=== PATIENT | female | born 1945 | race Caucasian/White ===

== ENCOUNTER 2017-02-16 01:46 | Inpatient (IN) | payer OTHER ==
[2017-02-16] MEDS ORDERED: ACETAMINOPHEN 500 MG TABLET (FP) PO ONE (02:15)
[2017-02-16] MEDS ORDERED: ACETAMINOPHEN 325 MG TABLET (FP) ONE (02:26)
--- NOTE | 2017-02-16 02:50 | PDOC ---
History of Present Illness - General Chief Complaint: Pain, Acute Stated Complaint: FALL,SHOULDER INJURY Time Seen by Provider: 02/16/17 02:08 History Source: Patient Exam Limitations: No Limitations - History of Present Illness Initial Comments: 02/16/17 03:18 Patient is a 71 y.o. female with a PMH of HIV and Seizure disorder who presents to our facility today after a mechanical fall. Patient states she slipped on some urine on the bathroom floor of her assisted living facility falling on her left side hitting her left arm and left shoulder. Patient denies any head trauma, loss of consciousness or associated seizure like activity. Patient c/ o of a dull pain in her RUE. Past History - Past Medical History Allergies/Adverse Reactions: Allergies Allergy/AdvReac Type Severity Reaction Status Date / Time No Known Allergies Allergy Verified 05/16/16 08:39 Home Medications: Ambulatory Orders Cyanocobalamin (Vitamin B-12) [B-12] 1,000 mcg PO DAILY 05/16/16 Dolutegravir Sodium [Tivicay] 50 mg PO DAILY 05/16/16 Fluoxetine HCl [Sarafem] 20 mg PO DAILY 05/16/16 Maraviroc [Selzentry] 300 mg PO BID 05/16/16 Metoprolol Tartrate [Lopressor -] 50 mg PO TID 05/16/16 Omeprazole Magnesium [Prilosec] 20 mg PO DAILY 05/16/16 Perphenazine [Trilafon] 4 mg PO DAILY 05/16/16 Phenobarbital 32.4 mg PO TID 05/16/16 Phenytoin Sodium 100 cap MC TID 05/16/16 Tenofovir Disoproxil Fumarate [Viread] 300 mg PO DAILY 05/16/16 CVA: Yes HTN: Yes Hypercholesterolemia: Yes HIV: Yes Psychiatric Problems: Yes (depression) Seizures: Yes (epilsepy) - Psycho/Social/Smoking Cessation Hx Suicidal Ideation: No Smoking History: Unknown if ever smoked Have you smoked in the past 12 months: No Hx Alcohol Use: No Drug/Substance Use Hx: No Substance Use Type: None Review of Systems - Review of Systems Constitutional: No: Symptoms Reported, Chills, Diaphoresis, Night Sweats HEENTM: No: Blurred Vision, Double Vision, Tinnitus, Throat Swelling Respiratory: No: Cough, Shortness of Breath Cardiac (ROS): No: Chest Pain, Lightheadedness, Palpitations, Syncope ABD/GI: No: Constipated, Diarrhea, Nausea, Vomiting : No: Burning, Dysuria Integumentary: No: Bruising, Dryness, Erythema, Flushing Neurological: No: Headache, Numbness, Seizure, Tingling, Tremors All Other Systems: Reviewed and Negative *Physical Exam - Vital Signs Last Vital Signs Temp Pulse Resp BP Pulse Ox 98.2 F 74 18 157/74 98 02/16/17 01:55 02/16/17 01:55 02/16/17 01:55 02/16/17 01:55 02/16/17 02:00 - Physical Exam General Appearance: Yes: Nourished, Appropriately Dressed HEENT: positive: EOMI, JODI Neck: positive: Trachea midline, Supple Respiratory/Chest: positive: Lungs Clear, Normal Breath Sounds Cardiovascular: positive: Regular Rhythm, Regular Rate, S1, S2 Gastrointestinal/Abdominal: positive: Normal Bowel Sounds, Soft Extremity: positive: Other (Limited ROM of RUE; no TTP) Integumentary: positive: Normal Color, Dry, Warm Neurologic: positive: Fully Oriented, Alert ED Treatment Course - LABORATORY CBC & Chemistry Diagram: 02/16/17 03:58 02/16/17 03:58 - RADIOLOGY Radiology Studies Ordered: Category Date Time Status HIP & PELVIS-LEFT [RAD] Stat Radiology 02/16/17 02:10 Taken HIP-RIGHT [RAD] Stat Radiology 02/16/17 02:15 Taken HUMERUS-LEFT [RAD] Stat Radiology 02/16/17 02:09 Taken SHOULDER-LEFT [RAD] Stat Radiology 02/16/17 02:09 Taken - Medications Given in the ED: ED Medications Discontinued Medications Generic Name Dose Route Start Last Admin Trade Name Freq PRN Reason Stop Dose Admin Acetaminophen 1,000 mg 02/16/17 02:15 02/16/17 02:21 Tylenol - PO 02/16/17 02:16 1,000 mg ONCE ONE Administration Medical Decision Making - Medical Decision Making 02/16/17 04:37 Patient is a 71 y.o. female who presents to our facility following a mechanical fall in which she injured her LUE. Wet read of the L shoulder X-ray showed posterior displacement of the humeral head as well as the L humeral fracture. Patient was admitted to medicine service with orthopedic consult pending. *DC/Admit/Observation/Transfer Diagnosis at time of Disposition: Humeral shaft fracture Qualifiers: Encounter type: initial encounter Fracture type: closed Fracture morphology: comminuted Fracture alignment: displaced Laterality: left Qualified Code(s): S42.352A - Displaced comminuted fracture of shaft of humerus, left arm, initial encounter for closed fracture - Discharge Dispostion Admit: Yes - Referrals - Attestations Physician Attestion: 02/16/17 05:25 I, Dr. Marisabel Glover, attest that this document has been prepared under my direction and personally reviewed by me in its entirety. I further attest, that it accurately reflects all work, treatment, procedures and medical decision -making performed by me.
--- NOTE | 2017-02-16 02:53 | PDOC ---
Attending Attestation - Resident Resident Name: Marisabel Glover - ED Attending Attestation I have performed the following: I have examined & evaluated the patient, The case was reviewed & discussed with the resident, I agree w/resident's findings & plan, Exceptions are as noted - HPI HPI: 02/16/17 02:51 S/p fall at NH c/o pain to left shoulder/ humeral region - Physicial Exam PE: 02/16/17 02:49 *Physical Exam General Appearance: Yes: Appropriately Dressed. No: Apparent Distress, Intoxicated HEENT: positive: EOMI, JODI, Normal ENT Inspection, Normal Voice, TMs Normal, Pharynx Normal. negative: Pale Conjunctivae, Photophobia, Scleral Icterus (R), Scleral Icterus (L) Neck: positive: Trachea midline, Normal Thyroid, Supple. negative: Tender, Rigid, Carotid bruit, Stridor, Lymphadenopathy (R), Lymphadenopathy (L), Thyromegaly Respiratory/Chest: positive: Lungs Clear, Normal Breath Sounds. negative: Chest Tender, Respiratory Distress, Accessory Muscle Use, Labored Respiration, RES, Crackles, Rales, Rhonchi, Stridor, Wheezing, Dullness Cardiovascular: positive: Regular Rhythm, Regular Rate, S1, S2. negative: Edema , JVD, Murmur, Bradycardia, Tachycardia Vascular Pulses: Dorsalis-Pedis (R): 2+, Doralis-Pedis (L): 2+ Gastrointestinal/Abdominal: positive: Normal Bowel Sounds, Flat, Soft. negative : Tender, Organomegaly, Pulsatile Mass, Increased Bowel Sounds, Decreased BS, Distended, Guarding, Rebound, Hernia, Hepatomegaly, Spleenomegaly Lymphatic: negative: Adenopathy, Tenderness Musculoskeletal: positive: Normal Inspection. negative: CVA Tenderness, Decreased Range of Motion Extremity: positive: Normal Capillary Refill, deformity to left shoulder/ humeral region, + left shoulder tenderness, Pelvis Stable. negative: Pedal Edema, Swelling, Erythema Integumentary: positive: Normal Color, Dry, Warm. negative: Cyanotic, Erythema , Jaundice, Rash Neurologic: positive: book packer II-XII NML intact, Fully Oriented, Alert, Normal Mood/ Affect, Motor Strength 5/5. negative: EOM Palsy, Facial Droop, Sensory Deficit - Medical Decision Making 02/16/17 02:52 admission to medicine <Milton Perez - Last Filed: 02/16/17 02:49> Discharge Disposition - Discharge Dispostion Admit: Yes <Milton Perez - Last Filed: 02/16/17 02:49> <Roberto Mauro - Last Filed: 02/16/17 03:55> - Diagnosis Humeral shaft fracture Qualifiers: Encounter type: initial encounter Fracture type: closed Fracture morphology: comminuted Fracture alignment: displaced Laterality: left Qualified Code(s): S42.352A - Displaced comminuted fracture of shaft of humerus, left arm, initial encounter for closed fracture - Referrals Referrals: Yasmine Coffey MD [Primary Care Provider] - Heart Score/ECG Review #1 02/16/17 03:54 Vent. rate [address] interval 142 ms QRS duration 94 ms Normal sinus rhythm Incomplete right bundle branch block T wave abnormality, consider anterior ischemia <Roberto Mauro - Last Filed: 02/16/17 03:55>
[2017-02-16] MEDS: morphine CARPU-JECT 4 MG/1 ML DISP.SYRIN IVPUSH ONE ×2 (04:00→04:11)
[2017-02-16] MEDS: ONDANSETRON 4 MG/2 ML VIAL IVPB ONE ×2 (04:01→04:11)
[2017-02-16] MEDS ORDERED: morphine CARPU-JECT 4 MG/1 ML DISP.SYRIN ONE ×2 (04:04→22:25)
[2017-02-16 04:06] LABS: MCH 31.8 pg (25.7-33.7); MEAN CELL VOLUME 96.2 fl (80-96); RDW 13.2 % (11.6-15.6); WHITE BLOOD COUNT 4.6 K/mm3 (4.0-10.0)
[2017-02-16 04:30] LABS: ANION GAP 8 (8-16); CALCIUM 8.9 mg/dL (8.5-10.1); CO2 28 mmol/L (21-32); CREATININE 0.6 mg/dL (0.55-1.02); GLUCOSE,RANDOM 130 mg/dL (74-106)
[2017-02-16 04:35] LABS: TROPONIN I < 0.02 ng/ml (0.00-0.05)
[2017-02-16 04:52] VITALS: BMI 32.7
[2017-02-16 05:07] LABS: PLATELET COMMENT2 UNABLE TO ENUMERATE; PLATELET ESTIMATE ADEQUATE (NORMAL)
[2017-02-16] MEDS ORDERED: SODIUM CHLORIDE 1,000 ML IV SCH ×2 (05:15→15:49)
[2017-02-16] MEDS ORDERED: morphine CARPU-JECT 2 MG/1 ML DISP.SYRIN IVPUSH PRN ×2 (05:26→15:49)
[2017-02-16] MEDS: PHENobarbital 30 MG TABLET PO SCH ×3 (06:11→21:29)
[2017-02-16] MEDS: PHENYTOIN NA EXTENDED 100 MG CAPSULE (FP) PO SCH ×3 (06:11→21:29)
[2017-02-16] MEDS: METOPROLOL TARTRATE 50 MG TABLET (FP) PO SCH ×3 (06:11→21:29)
--- NOTE | 2017-02-16 06:53 | HP ---
CHIEF COMPLAINT: PCP: HISTORY OF PRESENT ILLNESS: Patient is a 71 y.o. female with a PMH of HIV and Seizure disorder, HTN, who presents to our facility today after a mechanical fall. Patient states she slipped in bathroom floor of her assisted living facility falling on her left side hitting her left arm and left shoulder. Patient denies any head trauma, loss of consciousness or associated seizure like activity. Patient c/o of a dull pain in her RUE. She denies any fever , chills, Light headedness, blurry vision, chest pain, Abdominal pain , D/C/N/V. She reports h/o of urinary incontinence. ER course was notable for: (1)EKG : NSR (2)IV fluids NS 1000 Bolus (3)Pain control 4)Left arm x ray : Displaced closed left humerus fracture Recent Travel:NO PAST MEDICAL HISTORY:HIV, Seizures. PAST SURGICAL HISTORY: multiple humeral fractures Social History: Smoking:None Alcohol:Socially Drugs: None Family History:not significant Allergies No Known Allergies Allergy (Verified 05/16/16 08:39) HOME MEDICATIONS: Home Medications Medication Instructions Recorded Cyanocobalamin (Vitamin B-12) 1,000 mcg PO DAILY 05/16/16 [B-12] Dolutegravir Sodium [Tivicay] 50 mg PO DAILY 05/16/16 Fluoxetine HCl [Sarafem] 20 mg PO DAILY 05/16/16 Maraviroc [Selzentry] 300 mg PO BID 05/16/16 Metoprolol Tartrate [Lopressor -] 50 mg PO TID 05/16/16 Omeprazole Magnesium [Prilosec] 20 mg PO DAILY 05/16/16 Perphenazine [Trilafon] 4 mg PO DAILY 05/16/16 Phenobarbital 32.4 mg PO TID 05/16/16 Phenytoin Sodium 100 cap MC TID 05/16/16 Tenofovir Disoproxil Fumarate 300 mg PO DAILY 05/16/16 [Viread] Current Medications Generic Name Dose Route Start Last Admin Trade Name Freq PRN Reason Stop Dose Admin Fluoxetine HCl 20 mg 02/16/17 10:00 Prozac - PO DAILY BRODIE Sodium Chloride 1,000 mls @ 75 mls/hr 02/16/17 05:15 02/16/17 06:11 Normal Saline - IV 02/17/17 18:34 75 mls/hr ASDIR BRODIE Administration Maraviroc 300 mg 02/16/17 10:00 Selzentry - PO BID [facility] Metoprolol Tartrate 50 mg 02/16/17 06:00 02/16/17 06:11 Lopressor - PO 50 mg TID [facility] Administration Morphine Sulfate 2 mg 02/16/17 05:26 Morphine Injection - IVPUSH Q4H PRN PAIN Pantoprazole Sodium 20 mg 02/16/17 10:00 Protonix - PO DAILY [facility] Perphenazine 4 mg 02/16/17 10:00 Trilafon PO DAILY [facility] Phenobarbital 30 mg 02/16/17 06:00 02/16/17 06:11 Phenobarbital - PO 30 mg TID [facility] Administration Phenytoin Sodium 100 mg 02/16/17 06:00 02/16/17 06:11 Dilantin - PO 100 mg TID [facility] Administration Tenofovir Disoproxil Fumarate 300 mg 02/16/17 12:00 Viread - PO DAILY@1200 BRODIE Current Medications Fluoxetine HCl (Prozac -) 20 mg PO DAILY [facility] Sodium Chloride (Normal Saline -) 1,000 mls @ 75 mls/hr IV ASDIR [facility] Stop: 02/17/17 18:34 Last Admin: 02/16/17 06:11 Dose: 75 mls/hr Maraviroc (Selzentry -) 300 mg PO BID [facility] Metoprolol Tartrate (Lopressor -) 50 mg PO TID [facility] Last Admin: 02/16/17 06:11 Dose: 50 mg Morphine Sulfate (Morphine Injection -) 2 mg IVPUSH Q4H PRN PRN Reason: PAIN Pantoprazole Sodium (Protonix -) 20 mg PO DAILY [facility] Perphenazine (Trilafon) 4 mg PO DAILY [facility] Phenobarbital (Phenobarbital -) 30 mg PO TID [facility] Last Admin: 02/16/17 06:11 Dose: 30 mg Phenytoin Sodium (Dilantin -) 100 mg PO TID [facility] Last Admin: 02/16/17 06:11 Dose: 100 mg Tenofovir Disoproxil Fumarate (Viread -) 300 mg PO DAILY@1200 BRODIE REVIEW OF SYSTEMS CONSTITUTIONAL: Absent: fever, chills, diaphoresis, generalized weakness, malaise, loss of appetite, weight change HEENT: Absent: rhinorrhea, nasal congestion, throat pain, throat swelling, difficulty swallowing, mouth swelling, ear pain, eye pain, visual changes CARDIOVASCULAR: Absent: chest pain, syncope, palpitations, irregular heart rate, lightheadedness , peripheral edema RESPIRATORY: Absent: cough, shortness of breath, dyspnea with exertion, orthopnea, wheezing, stridor, hemoptysis GASTROINTESTINAL: Absent: abdominal pain, abdominal distension, nausea, vomiting, diarrhea, constipation, melena, hematochezia GENITOURINARY: Absent: dysuria, frequency, urgency, hesitancy, hematuria, flank pain, genital pain MUSCULOSKELETAL: Absent: myalgia, arthralgia, joint swelling left ashoulder , back pain, neck pain, Unable to move her left arm. SKIN: Absent: rash, itching, pallor, ecchymosis on the left upper arm. HEMATOLOGIC/IMMUNOLOGIC: Absent: easy bleeding, easy bruising, lymphadenopathy, frequent infections ENDOCRINE: Absent: weight gain during last 2 years, unexplained weight loss, heat intolerance, cold intolerance NEUROLOGIC: Absent: headache, focal weakness or paresthesias, dizziness, unsteady gait, seizure, mental status changes, bladder or bowel incontinence PSYCHIATRIC: Absent: anxiety, depression, suicidal or homicidal ideation, hallucinations. PHYSICAL EXAMINATION Vital Signs - 24 hr 02/16/17 02/16/17 02/16/17 04:47 04:55 05:15 Temperature 98.1 F Pulse Rate 104 H 66 Respiratory 20 Rate Blood Pressure 111/70 156/98 O2 Sat by Pulse 96 Oximetry (%) 02/16/17 06:33 Temperature Pulse Rate Respiratory 20 Rate Blood Pressure O2 Sat by Pulse 96 Oximetry (%) GENERAL: Awake, alert, and fully oriented, in no acute distress. HEAD: Normal with no signs of trauma. EYES: Pupils equal, round and reactive to light, extraocular movements intact, sclera anicteric, conjunctiva clear. No lid lag. NECK: Normal range of motion, supple without lymphadenopathy, JVD, or masses. LUNGS: Breath sounds equal, clear to auscultation bilaterally. No wheezes, and no crackles. No accessory muscle use. HEART: Regular rate and rhythm, normal S1 and S2 without murmur, rub or gallop. ABDOMEN: Soft, nontender, not distended, normoactive bowel sounds, no guarding, no rebound, no masses. No hepatomegaly or splenomegaly. MUSCULOSKELETAL: Normal range of motion at all joints except left arm. No CVA tenderness. UPPER EXTREMITIES: 2+ pulses, warm, well-perfused. No cyanosis. No clubbing. No peripheral edema. LOWER EXTREMITIES: 2+ pulses, warm, well-perfused. No calf tenderness. No peripheral edema. NEUROLOGICAL: Normal speech. PSYCHIATRIC: Cooperative. Good eye contact. Appropriate mood and affect. SKIN: Warm, dry, normal turgor, no rashes or lesions noted, normal capillary refill. Laboratory Results - last 24 hr 02/16/17 02/16/17 02/16/17 03:58 03:58 03:58 WBC 4.6 RBC 3.92 Hgb 12.5 Hct 37.8 MCV 96.2 H MCH 31.8 MCHC 33.0 RDW 13.2 Plt Count No Result Required. Platelet Estimate Adequate Platelet Comment Unable to enumerate INR Sodium 135 L Potassium 4.8 Chloride 99 Carbon Dioxide 28 Anion Gap 8 BUN 11 D Creatinine 0.6 Random Glucose 130 H Calcium 8.9 Creatine Kinase 80 Troponin I < 0.02 02/16/17 04:15 WBC RBC Hgb Hct MCV MCH MCHC RDW Plt Count Platelet Estimate Platelet Comment INR Cancelled Sodium Potassium Chloride Carbon Dioxide Anion Gap BUN Creatinine Random Glucose Calcium Creatine Kinase Troponin I ASSESSMENT/PLAN: Patient is a 71 y.o. female with a PMH of HIV and Seizure disorder who presents to our facility today S/P mechanical fall. In the Ed she was found to have displaced humerus fracture,and wad admitted to med-surg for evaluation and management. # S/P displaced closed fracture * IV fluids NS @ 75 CC/HR, 2 bags * Pain control , Morphine 2 mg IVpush Q 4 HR PRN * Ortho consult * NPO, possible procedure * Fall precautions * PT,INR , APTT, type and screen * * * # HIV , Chronic * Unknown Cd4, Viral load * Continue home meds Selzentry 300 mg PO BID BRODIE, Viread 300 mg PO DAILY@ 1200 BRODIE * F/U clinically * * # Seizure, chronic * continue home meds Dilantin 100 mg TID, Phenobarbital 30 mg PO TID, Phenytoin 4 mg PO daily. * * # HTN , Controlled * Continue home Med Lopressor 50 mg PO TID * * F/E/N * F: IV fluids NS @ 75CC /Hr , 2 bags * Electrolytes WNL * NPO * #Proph * DVT, High risk , 5000 Heparin SQ TID * GI Proph : Protonix 20 mg PO daily * * #Dispo * Admit for med surg * Full code * * Patient wad discussed with and the medical team Curt Garcia MD PGY 1 Note : day team please follow up about psych history, and verify her meds.
--- NOTE | 2017-02-16 07:23 | PN ---
Teaching Attending Note Name of Resident: Curt Gamboa ATTENDING PHYSICIAN STATEMENT I saw and evaluated the patient. I reviewed the resident's note and discussed the case with the resident. I agree with the resident's findings and plan as documented. SUBJECTIVE: 71 y/o female presented to ED after fall in bathroom with injury to left arm. Patient history significant for seizures and multiple fractures. OBJECTIVE: A&Ox3 in mild distress, left arm with ecchymosis on medial aspect, peripheral pulses appreciated, humerus deformed, limited ROM. CBCD WBC 4.6 K/mm3 (4.0-10.0) 02/16/17 03:58 RBC 3.92 M/mm3 (3.60-5.2) 02/16/17 03:58 Hgb 12.5 GM/dL (10.7-15.3) 02/16/17 03:58 Hct 37.8 % (32.4-45.2) 02/16/17 03:58 MCV 96.2 fl (80-96) H 02/16/17 03:58 MCHC 33.0 g/dl (32.0-36.0) 02/16/17 03:58 RDW 13.2 % (11.6-15.6) 02/16/17 03:58 Plt Count No Result Required. 02/16/17 03:58 CMP Sodium 135 mmol/L (136-145) L 02/16/17 03:58 Potassium 4.8 mmol/L (3.5-5.1) 02/16/17 03:58 Chloride 99 mmol/L (98-107) 02/16/17 03:58 Carbon Dioxide 28 mmol/L (21-32) 02/16/17 03:58 Anion Gap 8 (8-16) 02/16/17 03:58 BUN 11 mg/dL (7-18) D 02/16/17 03:58 Creatinine 0.6 mg/dL (0.55-1.02) 02/16/17 03:58 Random Glucose 130 mg/dL (74-106) H 02/16/17 03:58 Calcium 8.9 mg/dL (8.5-10.1) 02/16/17 03:58 CARDIAC ENZYMES Creatine Kinase 80 IU/L (26-192) 02/16/17 03:58 Troponin I < 0.02 ng/ml (0.00-0.05) 02/16/17 03:58 ASSESSMENT AND PLAN: S/P fall with posteriorly displaced closed fracture, ortho consult, pain medications prn, 1 L NS and NPO for possible surgical procedure. DVT prophylaxis. Falll risk precautions. Patient medically cleared and stable for low risk procedure surgical procedure.
[2017-02-16 09:12] LABS: MCHC 33.3 g/dl (32.0-36.0); MEAN CELL VOLUME 96.1 fl (80-96); MEAN PLT VOLUME 7.1 fl (7.5-11.1); PLATELET COUNT 259 K/MM3 (134-434); RDW 13.3 % (11.6-15.6); WHITE BLOOD COUNT 7.7 K/mm3 (4.0-10.0)
--- NOTE | 2017-02-16 09:17 | EKG ---
Test Reason : Blood Pressure : / mmHG Vent. Rate : 067 BPM Atrial Rate : 067 BPM P-R Int : 142 ms QRS Dur : 094 ms QT Int : 428 ms P-R-T Axes : 018 081 042 degrees QTc Int : 452 ms NORMAL SINUS RHYTHM INCOMPLETE RIGHT BUNDLE BRANCH BLOCK T WAVE ABNORMALITY, CONSIDER ANTERIOR ISCHEMIA ABNORMAL ECG NO PREVIOUS ECGS AVAILABLE Confirmed by GUILHERME STERLING MD ([id number]) on 02/16/2017 9:16:39 AM Referred By: Confirmed By:GUILHERME STERLING MD
[2017-02-16 09:23] LABS: ALBUMIN 3.2 g/dl (3.4-5.0); ALK PHOS 122 U/L (45-117); ANION GAP 8 (8-16); BILIRUBIN,TOTAL 0.2 mg/dL (0.2-1.0); CALCIUM 8.8 mg/dL (8.5-10.1); CO2 28 mmol/L (21-32); CREATININE 0.5 mg/dL (0.55-1.02); GLUCOSE,RANDOM 107 mg/dL (74-106); SGOT/AST 36 U/L (15-37); SGPT/ALT 54 U/L (12-78); TOT PROT 6.2 g/dl (6.4-8.2)
[2017-02-16] MEDS ORDERED: PT OWN MED DRAWER 7, Y5N ONE ×2 (09:23→21:11)
[2017-02-16] MEDS ORDERED: MARAVIROC 150 MG TAB PO SCH (10:00)
[2017-02-16] MEDS ORDERED: DOLUTEGRAVIR SODIUM 50 MG TABLET PO SCH (10:00)
[2017-02-16] MEDS ORDERED: PANTOPRAZOLE 20 MG TABLET (FP) PO SCH (10:00)
[2017-02-16] MEDS ORDERED: PERPHENAZINE 4 MG TABLET PO SCH (10:00)
[2017-02-16] MEDS ORDERED: FLUoxetine HCL 20 MG CAPSULE (FP) PO SCH (10:00)
--- NOTE | 2017-02-16 10:06 | CONSULT ---
Consult - text type - Consultation Consultation Note: FULL CONSULT DICTATED IMP: LEFT SEGMENTAL DISPLACED HUMERAL SHAFT FX PLAN: CT SCAN, ---> OR LATER TODAY
[2017-02-16 10:17] LABS: URINE APPEARANCE CLEAR; URINE BILIRUBIN NEGATIVE (NEGATIVE); URINE BLOOD NEGATIVE (NEGATIVE); URINE COLOR COLORLESS; URINE GLUCOSE (UA) NEGATIVE (NEGATIVE); URINE KETONE NEGATIVE (NEGATIVE); URINE LEUK ESTERASE NEGATIVE (NEGATIVE); URINE NITRITE NEGATIVE (NEGATIVE); URINE PROTEIN NEGATIVE (NEGATIVE); URINE UROBILINOGEN NEGATIVE mg/dL (0.2-1.0)
[2017-02-16] MEDS ORDERED: TENOFOVIR DISOPROXIL FUMARATE 300 MG TABLET PO SCH (12:00)
[2017-02-16] MEDS ORDERED: PROPOFOL 20 ML ONE (13:53)
[2017-02-16] MEDS ORDERED: MIDAZOLAM HCL 2 MG/2 ML SINGLE DOSE VIAL ONE (13:53)
[2017-02-16] MEDS ORDERED: LIDOCAINE HCL 2% (20ML MULTI-DOSE VIAL) NR ONE (13:57)
[2017-02-16] MEDS ORDERED: ROCURONIUM BROMIDE 50 MG/5 ML VIAL ONE (14:18)
[2017-02-16] MEDS ORDERED: ceFAZolin SODIUM 1 GM VIAL ONE (14:35)
[2017-02-16] MEDS ORDERED: ceFAZolin SODIUM 1 GM VIAL IVPB ONE (14:40)
[2017-02-16] MEDS ORDERED: PHENYLEPHRINE HCL 10 MG/1 ML SINGLE DOSE VIAL ONE (14:52)
[2017-02-16] MEDS ORDERED: NEOSTIGMINE METHYLSULFATE 0.5 MG/ML - 10 ML MDV ONE (15:10)
[2017-02-16] MEDS ORDERED: GLYCOPYRROLATE 0.2 MG/1 ML VIAL ONE (15:10)
--- NOTE | 2017-02-16 15:20 | OP ---
Operative Note - Note: Operative Date: 02/16/17 Pre-Operative Diagnosis: left proximal humerus fx and humeral shaft fx Operation: open exploration of left proximal humerus fx and exam under fluoroscopy left humerus Post-Operative Diagnosis: Other (left acute proximal humerus fx and chronic nonunion humeral shaft fx) Surgeon: Attila Hardin Anesthesia: General Estimated Blood Loss (mls): 0 Operative Report Dictated: Yes
[2017-02-16] MEDS ORDERED: ACETAMINOPHEN 1000 MG/100 ML VIAL (NON FORMULARY) IVPB PRN (15:27)
[2017-02-16] MEDS ORDERED: LACTATED RINGERS SOLUTION 1,000 ML IV SCH (15:30)
[2017-02-16] MEDS ORDERED: ACETAMINOPHEN INJECTION 100 ML IVPB ONE (16:04)
[2017-02-16] MEDS ORDERED: ACETAMINOPHEN 1000 MG/100 ML VIAL (NON FORMULARY) IVPB ONE (16:06)
--- NOTE | 2017-02-16 18:57 | PN ---
Teaching Attending Note Name of Resident: Tamia Callejas ATTENDING PHYSICIAN STATEMENT I saw and evaluated the patient. I reviewed the resident's note and discussed the case with the resident. I agree with the resident's findings and plan as documented. SUBJECTIVE: no fever or chills, has L sided painin upper arm. reports having old Fx in humeral shafts b/l ( not treated surgically ) OBJECTIVE: NAD , AAOx3 CV : RRR, no MRG Lung s: CTAB ABd :s fot, NT, ND , NL BS Ext : no edema over LE . LUE with deformitiy in upper arm and bruising with TTP . RUE with deformity in upper arm. limited range of motion in both upper extremities L > R ASSESSMENT AND PLAN: 71 y/o lady with h/o HTN, HIV on HAART, and seizure disorder who presented after a mechanical fall and was found to have a new L humeral neck fx in addition to the old humeral shaft Fx . 1- L humeral shaft FX ( old ) , and L humeral neck Fx. -s/p surgical exploration today -start DVT px . - cont IVF for now , - pain control 2- old R humeral shaft Fx. 3- HIV: cont meds 4- HTN:cont BB 5- h/o Seizure DO : cont meds dispo: PT and will require rehab
--- NOTE | 2017-02-16 19:08 | PN ---
Physical Exam: SUBJECTIVE: Patient seen and examined this AM. States she is in no pain after morphine. No CP, no SOB, no fevers, no chills. OBJECTIVE: Vital Signs Period Temp Pulse Resp BP Sys/Ibanez Pulse Ox Last 24 Hr 97.9 F-98.4 F 60-104 16-20 90-156/50-98 96-100 GENERAL: The patient is awake, alert, and fully oriented, in no acute distress. HEENT: PERRLA, EOMi, normal neck ROM, no LAD LUNGS: Breath sounds equal, clear to auscultation bilaterally, no wheezes, no crackles, no accessory muscle use. HEART: Regular rate and rhythm, S1, S2 without murmur, rub or gallop. ABDOMEN: Soft, nontender, nondistended, normoactive bowel sounds, no guarding, no rebound RIGHT UPPER EXTREMITY: R humerus deformity seen, 2+ pulses, normal sensation, 5/ 5 muscle strength, limited ROM of shoulder, no edema, non TTP LEFT UPPER EXTREMITY: L arm in a sling, minor echymosis near shoulder, 2+ pulses , normal sensation, 5/5 muscle strength, limited ROM of shoulder, shoulder shows nonpitting edema, non TTP LOWER EXTREMITIES: 2+ pulses, warm, well-perfused, no edema, normal sensation, 5 /5 muscle strength NEUROLOGICAL: Cranial nerves II through XII grossly intact. No facial droop. Normal sensation and muscle strength in upper and lower extremities and face. No focal neurological deficits. Normal speech, gait not observed. Laboratory Results - last 24 hr 02/16/17 02/16/17 02/16/17 03:58 03:58 03:58 WBC 4.6 RBC 3.92 Hgb 12.5 Hct 37.8 MCV 96.2 H MCH 31.8 MCHC 33.0 RDW 13.2 Plt Count No Result Required. MPV Platelet Estimate Adequate Platelet Comment Unable to enumerate INR Sodium 135 L Potassium 4.8 Chloride 99 Carbon Dioxide 28 Anion Gap 8 BUN 11 D Creatinine 0.6 Creat Clearance w eGFR Random Glucose 130 H Calcium 8.9 Total Bilirubin AST ALT Alkaline Phosphatase Creatine Kinase 80 Troponin I < 0.02 Total Protein Albumin Urine Color Urine Appearance Urine pH Ur Specific Blanchard Urine Protein Urine Glucose (UA) Urine Ketones Urine Blood Urine Nitrite Urine Bilirubin Urine Urobilinogen Ur Leukocyte Esterase Blood Type Antibody Screen Spec Expiration Date 02/16/17 02/16/17 02/16/17 03:58 04:15 06:00 WBC RBC Hgb Hct MCV MCH MCHC RDW Plt Count MPV Platelet Estimate Platelet Comment INR Cancelled Sodium Potassium Chloride Carbon Dioxide Anion Gap BUN Creatinine Creat Clearance w eGFR Random Glucose Calcium Total Bilirubin AST ALT Alkaline Phosphatase Creatine Kinase Troponin I Total Protein Albumin Urine Color Colorless Urine Appearance Clear Urine pH 7.0 Ur Specific Blanchard 1.010 Urine Protein Negative Urine Glucose (UA) Negative Urine Ketones Negative Urine Blood Negative Urine Nitrite Negative Urine Bilirubin Negative Urine Urobilinogen Negative Ur Leukocyte Esterase Negative Blood Type Cancelled Antibody Screen Cancelled Spec Expiration Date Cancelled 02/16/17 02/16/17 02/16/17 07:00 07:00 09:00 WBC 7.7 D RBC 3.92 Hgb 12.5 Hct 37.7 MCV 96.1 H MCH 32.0 MCHC 33.3 RDW 13.3 Plt Count 259 MPV 7.1 L Platelet Estimate Platelet Comment INR Sodium 138 Potassium 4.2 Chloride 102 Carbon Dioxide 28 Anion Gap 8 BUN 9 Creatinine 0.5 L Creat Clearance w eGFR > 60 Random Glucose 107 H Calcium 8.8 Total Bilirubin 0.2 AST 36 ALT 54 Alkaline Phosphatase 122 H Creatine Kinase Troponin I Total Protein 6.2 L Albumin 3.2 L Urine Color Urine Appearance Urine pH Ur Specific Blanchard Urine Protein Urine Glucose (UA) Urine Ketones Urine Blood Urine Nitrite Urine Bilirubin Urine Urobilinogen Ur Leukocyte Esterase Blood Type A POSITIVE Antibody Screen Negative Spec Expiration Date 02/16/17 02/16/17 09:00 10:03 WBC RBC Hgb Hct MCV MCH MCHC RDW Plt Count MPV Platelet Estimate Platelet Comment INR 1.00 Sodium Potassium Chloride Carbon Dioxide Anion Gap BUN Creatinine Creat Clearance w eGFR Random Glucose Calcium Total Bilirubin AST ALT Alkaline Phosphatase Creatine Kinase Troponin I Total Protein Albumin Urine Color Urine Appearance Urine pH Ur Specific Blanchard Urine Protein Urine Glucose (UA) Urine Ketones Urine Blood Urine Nitrite Urine Bilirubin Urine Urobilinogen Ur Leukocyte Esterase Blood Type A POSITIVE Antibody Screen Spec Expiration Date Active Medications Generic Name Dose Route Start Last Admin Trade Name Freq PRN Reason Stop Dose Admin Acetaminophen 1,000 mg 02/16/17 15:27 Ofirmev Injection - IVPB 02/17/17 09:28 Q6H PRN FEVER OR PAIN Fentanyl 25 mcg 02/16/17 15:27 Sublimaze Injection - IVPUSH 02/19/17 15:28 [id number] PRN PAIN Fluoxetine HCl 60 mg 02/17/17 10:00 Prozac - PO DAILY [facility] Heparin Sodium (Porcine) 5,000 unit 02/16/17 22:00 Heparin - SQ TID [facility] Sodium Chloride 1,000 mls @ 75 mls/hr 02/16/17 15:49 Normal Saline - IV 02/17/17 18:34 ASDIR [facility] Maraviroc 300 mg 02/16/17 22:00 Selzentry - PO BID [facility] Metoprolol Tartrate 50 mg 02/16/17 22:00 Lopressor - PO TID [facility] Morphine Sulfate 2 mg 02/16/17 15:49 Morphine Injection - IVPUSH Q4H PRN PAIN Pantoprazole Sodium 20 mg 02/17/17 10:00 Protonix - PO DAILY [facility] Perphenazine 4 mg 02/17/17 10:00 Trilafon PO DAILY [facility] Phenobarbital 30 mg 02/16/17 22:00 Phenobarbital - PO TID [facility] Phenytoin Sodium 100 mg 02/16/17 22:00 Dilantin - PO TID [facility] Tenofovir Disoproxil Fumarate 300 mg 02/17/17 12:00 Viread - PO DAILY [facility] ASSESSMENT/PLAN: Pt is a 71yo F with HIV on HAART, Seizure Disorder, who presented to the ER s/p mechanical fall without seizure or loss of consciousness. She hit her L arm, and XR shows old oblique L arm humerus fracture and new slightly impacted fracture of humeral neck. # Old L arm humerus fx + New L humeral neck fracture - Pt had surgery today by Dr. Hardin - IV Morphine 2mg Q4 PRN + IV Tylenol 1g Q6 PRN for pain # HTN, controlled - Continue home Metoprolol Tartrate 50mg TID # Hx of HIV - Continue HAART (Maraviroc + Dolutegravir + Tenofovir) # Hx of Seizures - No seizure activity during hospitalization - Continue home Phenytoin 100mg PO TID - Continue home Phenobarbital 30mg TID # Hx of Depression/Psychosis Dz - Continue home Prozac 60mg PO QD - Continue home Perphenazine 4mg PO QD #FEN - Fluids: IV NS 75mL/hr x 2 bags - Electrolyte: F/u electrolytes - Nutrition: Sodium controlled diet # Prophylaxis - DVT - Heparin SQ - GI - Protonix 20mg PO QD - Deconditioning - PT consulted # Home Medications - Confirmed with Pharmacy on 02/16 Dr. Tamia Callejas - PGY1 Internal Medicine Resident Visit type - Emergency Visit Emergency Visit: No - New Patient This patient is new to me today: No - Critical Care Critical Care patient: No - Discharge Referral Referred to [facility] No
[2017-02-16] MEDS: HEPARIN NA (PORCINE) 5,000 UNITS/ML 1ML VIAL SQ SCH (21:30)
[2017-02-16] MEDS: MARAVIROC 150 MG TAB PO SCH (21:31)
[2017-02-16] MEDS ORDERED: HEPARIN NA (PORCINE) 5,000 UNITS/ML 1ML VIAL SQ SCH (22:00)
[2017-02-17] MEDS ORDERED: morphine CARPU-JECT 4 MG/1 ML DISP.SYRIN IVPUSH PRN (02:03)
[2017-02-17] MEDS: METOPROLOL TARTRATE 50 MG TABLET (FP) PO SCH ×3 (06:26→22:03)
[2017-02-17] MEDS: PHENobarbital 30 MG TABLET PO SCH ×3 (06:26→21:59)
[2017-02-17] MEDS: PHENYTOIN NA EXTENDED 100 MG CAPSULE (FP) PO SCH ×3 (06:26→21:58)
[2017-02-17] MEDS: HEPARIN NA (PORCINE) 5,000 UNITS/ML 1ML VIAL SQ SCH ×3 (06:26→22:02)
[2017-02-17 08:29] LABS: MCH 32.9 pg (25.7-33.7); MCHC 34.3 g/dl (32.0-36.0); MEAN PLT VOLUME 6.6 fl (7.5-11.1); PLATELET COUNT 188 K/MM3 (134-434); RDW 13.1 % (11.6-15.6); WHITE BLOOD COUNT 8.2 K/mm3 (4.0-10.0)
[2017-02-17 08:38] LABS: ALBUMIN 2.7 g/dl (3.4-5.0); ALK PHOS 135 U/L (45-117); ANION GAP 5 (8-16); BILIRUBIN,TOTAL 0.5 mg/dL (0.2-1.0); CO2 28 mmol/L (21-32); CREATININE 0.5 mg/dL (0.55-1.02); GLUCOSE,RANDOM 121 mg/dL (74-106); SGOT/AST 40 U/L (15-37); SGPT/ALT 51 U/L (12-78); TOT PROT 5.8 g/dl (6.4-8.2)
--- NOTE | 2017-02-17 09:22 | PN ---
Teaching Attending Note Name of Resident: Krista Mcknight ATTENDING PHYSICIAN STATEMENT I saw and evaluated the patient. I reviewed the resident's note and discussed the case with the resident. I agree with the resident's findings and plan as documented. SUBJECTIVE: Fever last night , has no ABd pain or pain in Her L upper arm. pain over night had improved OBJECTIVE: NAD, AAOx3 CV: RRR, no MRG Lungs: CTAB ABd :soft, NT, ND , NL BS Ext : no edema over LE . LUE with deformity in upper arm and bruising with TTP a bandage at level of humerous neck . RUE with deformity in upper arm. limited range of motion in both upper extremities L > R ASSESSMENT AND PLAN: 71 y/o lady with h/o HTN, HIV on HAART, and seizure disorder who presented after a mechanical fall and was found to have a new L humeral neck fx in addition to the old humeral shaft Fx . 1- L humeral shaft FX ( old ) , and new L humeral neck Fx. -s/p surgical exploration - DVT px -Dc IVF - pain control: add oxycodone and dc morphine - fever within 24 hr of surgery , does not indicate infection . will monitor 2- Abnormal LFTs :Possible Meds side effect. ? hypotension during surgery or other etiology. Pt has no RUQ pain or tenderness. - trend LFTS . 3- old R humeral shaft Fx. 4- HIV: cont meds 5- HTN:cont BB 6- h/o Seizure DO : cont meds dispo: PT and will require rehab D/W pt possibility of rehab. She will think about it .
[2017-02-17] MEDS: FLUoxetine HCL 20 MG CAPSULE (FP) PO SCH (09:39)
[2017-02-17] MEDS: PANTOPRAZOLE 20 MG TABLET (FP) PO SCH (09:40)
[2017-02-17] MEDS: MARAVIROC 150 MG TAB PO SCH ×2 (09:41→22:03)
[2017-02-17] MEDS: DOLUTEGRAVIR SODIUM 50 MG TABLET PO SCH (09:41)
[2017-02-17] MEDS: PERPHENAZINE 4 MG TABLET PO SCH (09:42)
--- NOTE | 2017-02-17 09:43 | CONS ---
DATE OF CONSULTATION: 02/16/2017 HISTORY: The patient is a 71-year-old female with a past medical history for seizure disorder and HIV status post fall injuring her left humerus. PHYSICAL EXAMINATION: She has swelling and angulation of the humeral shaft. She has good motion of her wrist and fingers and ulnar medial and radial sensation and motor are intact. Marked pain with range of motion of her shoulder. Nontender clavicle, AC joint, or acromion, 2+ pulses. Brisk capillary refill. X-rays taken today show a displaced humeral shaft fracture and what appears to be a proximal humerus fracture that is nondisplaced as well. IMPRESSION: Left segmental humeral shaft fracture with marked displacement. Risks, benefits, and alternatives discussed with the patient in great detail including, but not limited to, potential radial nerve injury with operative intervention. The patient will be booked for IM rodding of the left humerus later today. We will get a preoperative CAT scan to further illustrate the fracture pattern prior to the procedure. STANTON LUKE M.D. [id number]
--- NOTE | 2017-02-17 09:52 | PN ---
Progress Note (short form) - Note Progress Note: POD #1 - s/p left humerus IM rodding under general anesthesia. Pt. doing well, resting comfortably in bed. VSS. No complaints. No apparent anesthetic complications noted. Continue current care.
[2017-02-17] MEDS ORDERED: PATIENT'S OWN MEDICATION (NON-FORMULARY) (Emtricitabine/Tenofov Alafenam [Descovy 200-25 M PO SCH (10:00)
[2017-02-17] MEDS: TENOFOVIR DISOPROXIL FUMARATE 300 MG TABLET PO SCH (11:49)
[2017-02-17] MEDS: DOCUSATE SODIUM 100 MG CAPSULE (FP) PO SCH (11:50)
[2017-02-17] MEDS: oxyCODONE HCL 5 MG TABLET PO PRN ×2 (11:50→17:51)
[2017-02-17] MEDS: ACETAMINOPHEN 325 MG TABLET (FP) PO PRN ×2 (11:50→17:50)
--- NOTE | 2017-02-17 11:51 | OP ---
DATE OF OPERATION: 02/16/2017 PREOPERATIVE DIAGNOSIS: Left acute segmental humerus fracture. 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 SURGICAL PROCEDURE: Open exploration and fluoroscopy of the fracture and closed treatment of the proximal humerus fracture. SURGICAL ATTENDING: Attila Hardin MD ANESTHESIA: General with endotracheal intubation. POSITION: Beach chair. CLOSURE: Vicryl 0, fascia; 2-0, subcutaneous; and gaby, skin. ESTIMATED BLOOD LOSS: Negligible. COMPLICATIONS: None. CONDITION: To recovery room in stable condition. INDICATIONS FOR OPERATIVE PROCEDURE: Patient was status post fall, complaining of pain of her left humerus. She was found in the emergency room to have a proximal humerus fracture and a humeral shaft fracture. Upon speaking to the patient, the patient informed us of an established nonunion that she had in her right humeral shaft and that was her main arm. However, she did not relate any information of a problem specifically for her left humerus, although she did say that she did not use that arm much. It was thus indicated for the patient to go to the operating room for possible IM rodding of the left humeral shaft fracture. DESCRIPTION OF OPERATIVE PROCEDURE: Patient taken to the operating room on February 16, 2017. General anesthesia with endotracheal intubation was administered by the anesthesiologist. IV Kefzol was administered prophylactically prior to the case. Patient was placed in the beach chair position. A small 3-cm longitudinal incision over the anterolateral corner of the acromion was made. Hemostasis achieved with Bovie cautery. Sharp dissection carried down to the level of the fascia of the deltoid which was split in the line of its fibers and then digital dissection in the subacromial space to gain access to the proximal humerus. The fracture was palpated digitally and found to be acute but in acceptable alignment. A guidewire was passed down the proximal humerus and the proximal humerus was opened with the step drill. The long beaded guidewire was placed down the proximal humerus and it was found that it came to a firm endpoint with the humeral shaft being closed off at the end of the proximal fragment. Fluoroscopy revealed a rounding off of the fracture with splintering and no intramedullary cortex, more consistent with an established nonunion. It was thus decided to abandon this procedure as the proximal humerus fracture was in good position and the patient had a chronic humeral shaft nonunion. The wound was irrigated. The deltoid was closed with 0 Vicryl, 2-0 subcutaneous, and gaby for skin. A sterile pressure dressing followed by a sling was applied. Patient awakened from anesthesia and transferred to recovery in stable condition. No complications. Estimated blood loss negligible. Ana Maria [id number]
--- NOTE | 2017-02-17 18:05 | PN ---
Progress Note (short form) - Note Progress Note: Pt seen and examined. She is doing fine, in a shoulder sling, comfortable. No other orthopedic intervention required. She can be discharged from an orthopedic point of view
[2017-02-17] MEDS ORDERED: METOPROLOL TARTRATE 25 MG TABLET (FP) PO ONE (21:58)
[2017-02-17] MEDS: SENNOSIDES 8.6MG TABLET (FP) PO SCH (21:58)
--- NOTE | 2017-02-18 05:55 | PN ---
Physical Exam: This is the note for 02/17/2017 SUBJECTIVE: Patient seen and examined at bed side on 02/17/2017. She said she feels better. Tolerated clears overnight and about to eat breakfast. Pain is controlled with pain medications. OBJECTIVE: Vital Signs Period Temp Pulse Resp BP Sys/Ibanez Pulse Ox Last 24 Hr 98.7 F-100.2 F 72-110 18-20 93-137/28-69 98-99 GENERAL: The patient is awake, alert, and fully oriented, in no acute distress. HEAD: Normal with no signs of trauma. EYES: EOM intact, no pallor or icterus. ENT: Ears normal, nares patent, , moist mucous membranes. NECK: Supple. LUNGS: Breath sounds equal, clear to auscultation bilaterally, no wheezes, no crackles, no accessory muscle use. HEART: Regular rate and rhythm, S1, S2 without murmur, rub or gallop. ABDOMEN: Soft, nontender, nondistended, normoactive bowel sounds, no guarding, no rebound, no hepatosplenomegaly, no masses. RIGHT EXTREMITY: 2+ pulses, warm, well-perfused, no edema, limited ROM. LEFT EXTREMITY: ARM sling in place, 2+ pulses, normal sensation, 5/5 muscle strength, limited ROM of shoulder, swelling increased than yesterday. NEUROLOGICAL: Cranial nerves II through XII grossly intact. Normal speech, gait not observed. PSYCH: Normal mood, normal affect. SKIN: Warm, dry, normal turgor, no rashes or lesions noted Laboratory Results - last 24 hr 02/17/17 02/17/17 08:08 08:08 WBC 8.2 RBC 3.35 L Hgb 11.0 D Hct 32.2 L MCV 96.0 MCH 32.9 MCHC 34.3 RDW 13.1 Plt Count 188 D MPV 6.6 L Sodium 137 Potassium 3.8 Chloride 104 Carbon Dioxide 28 Anion Gap 5 L BUN 8 Creatinine 0.5 L Creat Clearance w eGFR > 60 Random Glucose 121 H Calcium 8.0 L Total Bilirubin 0.5 D AST 40 H ALT 51 Alkaline Phosphatase 135 H Total Protein 5.8 L Albumin 2.7 L Active Medications Generic Name Dose Route Start Last Admin Trade Name Freq PRN Reason Stop Dose Admin Acetaminophen 325 mg 02/17/17 10:50 02/17/17 17:50 Tylenol - PO 325 mg Q6H PRN Administration FEVER OR PAIN Docusate Sodium 100 mg 02/17/17 11:00 02/17/17 11:50 Colace - PO 100 mg DAILY [facility] Administration Fentanyl 25 mcg 02/16/17 15:27 Sublimaze Injection - IVPUSH 02/19/17 15:28 [id number] PRN PAIN Fluoxetine HCl 60 mg 02/17/17 10:00 02/17/17 09:39 Prozac - PO 60 mg DAILY [facility] Administration Heparin Sodium (Porcine) 5,000 unit 02/16/17 22:00 02/17/17 22:02 Heparin - SQ 5,000 unit TID [facility] Administration Maraviroc 300 mg 02/16/17 22:00 02/17/17 22:03 Selzentry - PO 300 mg BID [facility] Administration Metoprolol Tartrate 50 mg 02/17/17 22:00 02/17/17 22:03 Lopressor - PO Not Given BID [facility] Oxycodone HCl 5 mg 02/17/17 10:49 02/17/17 17:51 Roxicodone - PO 5 mg Q6H PRN Administration PAIN Pantoprazole Sodium 20 mg 02/17/17 10:00 02/17/17 09:40 Protonix - PO Not Given DAILY [facility] Perphenazine 4 mg 02/17/17 10:00 02/17/17 09:42 Trilafon PO 4 mg DAILY [facility] Administration Phenobarbital 30 mg 02/16/17 22:00 02/17/17 21:59 Phenobarbital - PO 30 mg TID [facility] Administration Phenytoin Sodium 100 mg 02/16/17 22:00 02/17/17 21:58 Dilantin - PO 100 mg TID [facility] Administration Senna 2 tab 02/17/17 22:00 02/17/17 21:58 Senna - PO 2 tab HS [facility] Administration Tenofovir Disoproxil Fumarate 300 mg 02/17/17 12:00 02/17/17 11:49 Viread - PO 300 mg DAILY [facility] Administration ASSESSMENT/PLAN: Patient is a 71 year old Female with past medical history of HIV on HAART, Seizure Disorder, who presented to the ER s/p mechanical fall without seizure or loss of consciousness. # Acute left proximal humerus fracture with an old non union of the humeral shaft fracture POD-Day 1 s/p Open exploration and fluoroscopy of the fracture and closed treatment of proximal humerus fracture Pain controlled with percocet # Hypertension-controlled 02/17/17 in the evening, BP was 111/59 mmHg with a HR of 112bpm, hence 25 mg of Metoprolol was given in the evening. Continue home Metoprolol Tartrate 50mg TID, adjustment as per BP. # Hx of HIV Continue HAART (Maraviroc + Dolutegravir + Tenofovir) # Hx of Seizures None noted during this hospital stay. Continue home Phenytoin 100mg PO TID Continue home Phenobarbital 30mg TID # Hx of Depression/Psychosis Dz Continue home Prozac 60mg PO QD Continue home Perphenazine 4mg PO QD #FEN IV Fluids stopped, able to tolerate PO Electrolytes to be repeated in am Sodium controlled diet # Prophylaxis For DVT - Heparin 5000 IU TID SQ For GI - Protonix 20mg PO Daily PT eval # Code status: Full Code # Dispo: Admitted in Med-Surg. Plan is to talk to the psychologist social on Sunday for a possible rehab placement. Illness, Investigation and Plan of care explained to the patient. She verbalized understanding. Case discussed with Dr. Waters. Visit type - Emergency Visit Emergency Visit: Yes ED Registration Date: 02/16/17 Care time: The patient presented to the Emergency Department on the above date and was hospitalized for further evaluation of their emergent condition. - New Patient This patient is new to me today: No - Critical Care Critical Care patient: No
[2017-02-18] MEDS: HEPARIN NA (PORCINE) 5,000 UNITS/ML 1ML VIAL SQ SCH ×3 (06:26→21:57)
[2017-02-18] MEDS: PHENobarbital 30 MG TABLET PO SCH ×3 (06:26→21:56)
[2017-02-18] MEDS: PHENYTOIN NA EXTENDED 100 MG CAPSULE (FP) PO SCH ×3 (06:26→21:57)
[2017-02-18 08:58] LABS: BASOPHIL 0.5 % (0-2.0); EOSINOPHIL 0.4 % (0-4.5); MCH 32.6 pg (25.7-33.7); MEAN CELL VOLUME 95.9 fl (80-96); MEAN PLT VOLUME 6.7 fl (7.5-11.1); NEUTROPHILS 58.6 % (42.8-82.8); PLATELET COUNT 172 K/MM3 (134-434); RDW 12.9 % (11.6-15.6); WHITE BLOOD COUNT 6.8 K/mm3 (4.0-10.0)
[2017-02-18 09:06] LABS: ALBUMIN 2.5 g/dl (3.4-5.0); ALK PHOS 118 U/L (45-117); ANION GAP 7 (8-16); BILIRUBIN,TOTAL 0.4 mg/dL (0.2-1.0); CALCIUM 8.1 mg/dL (8.5-10.1); CO2 27 mmol/L (21-32); CREATININE 0.4 mg/dL (0.55-1.02); GLUCOSE,RANDOM 109 mg/dL (74-106); SGOT/AST 20 U/L (15-37); SGPT/ALT 32 U/L (12-78); TOT PROT 5.6 g/dl (6.4-8.2)
[2017-02-18] MEDS: METOPROLOL TARTRATE 50 MG TABLET (FP) PO SCH ×2 (10:08→21:57)
[2017-02-18] MEDS: PANTOPRAZOLE 20 MG TABLET (FP) PO SCH (10:08)
[2017-02-18] MEDS: MARAVIROC 150 MG TAB PO SCH ×2 (10:09→21:57)
[2017-02-18] MEDS: DOCUSATE SODIUM 100 MG CAPSULE (FP) PO SCH (10:09)
[2017-02-18] MEDS: TENOFOVIR DISOPROXIL FUMARATE 300 MG TABLET PO SCH (10:11)
[2017-02-18] MEDS: PERPHENAZINE 4 MG TABLET PO SCH (10:11)
[2017-02-18] MEDS: FLUoxetine HCL 20 MG CAPSULE (FP) PO SCH (10:12)
[2017-02-18] MEDS: DOLUTEGRAVIR SODIUM 50 MG TABLET PO SCH (10:14)
--- NOTE | 2017-02-18 10:52 | PN ---
Progress Note (short form) - Note Progress Note: Subjective: pain In LUE especially when moved. had a fever . no cough or SOB Objective: Vital Signs: Last Vital Signs Temp Pulse Resp BP Pulse Ox 98.7 F 88 20 132/69 99 02/18/17 05:39 02/18/17 05:39 02/18/17 05:39 02/18/17 05:39 02/17/17 19:55 Laboratory Results - last 24 hr 02/18/17 02/18/17 08:30 08:30 WBC 6.8 RBC 3.28 L Hgb 10.7 Hct 31.4 L MCV 95.9 MCH 32.6 MCHC 34.0 RDW 12.9 Plt Count 172 MPV 6.7 L Neutrophils % 58.6 Lymphocytes % 28.3 Monocytes % 12.2 H Eosinophils % 0.4 Basophils % 0.5 Sodium 136 Potassium 3.4 L Chloride 102 Carbon Dioxide 27 Anion Gap 7 L BUN 6 L D Creatinine 0.4 L Creat Clearance w eGFR > 60 Random Glucose 109 H Calcium 8.1 L Total Bilirubin 0.4 AST 20 D ALT 32 D Alkaline Phosphatase 118 H Total Protein 5.6 L Albumin 2.5 L Physical Exam: NAD, AAOx3 CV: RRR, no MRG Lungs: CTAB ABd :soft, NT, ND , NL BS Ext : no edema over LE . LUE with deformity in upper arm and minimal bruising with TTP . New area of erythema and increased edema on L upper arm. RUE with deformity in upper arm. limited range of motion in both upper extremities L > R ASSESSMENT AND PLAN: 71 y/o lady with h/o HTN, HIV on HAART, and seizure disorder who presented after a mechanical fall and was found to have a new L humeral neck fx in addition to the old humeral shaft Fx . 1- L humeral shaft FX ( old ) , and new L humeral neck Fx. -s/p surgical exploration - new area of erythema , and fever ---> suspicion for cellulitis . Also DVT can cause fever and erythema - check US to r/o DVT - start Unasyn - cont oxycodone - send blood cx 2- Abnormal LFTs :Possible HIV Meds side effect. ? hypotension during surgery or other etiology. Pt has no RUQ pain or tenderness. -US report pending - follwo LFTS ( improved ) 3- Old R humeral shaft Fx. 4- HIV: cont meds 5- HTN:cont BB ( decrease dose to BID due to sx of orthostatic hypotesntion per hx ) 6- h/o Seizure DO : cont meds Dispo : HLOC . Will eventually need rehab. anticipate dc in 2 days Visit type - Emergency Visit Emergency Visit: Yes ED Registration Date: 02/16/17 Care time: The patient presented to the Emergency Department on the above date and was hospitalized for further evaluation of their emergent condition. - New Patient This patient is new to me today: No - Critical Care Critical Care patient: No
--- NOTE | 2017-02-18 12:20 | PN ---
Progress Note (short form) - Note Progress Note: Pt seen, doing well, comfortable, min c/o pain. NTD orthopedically. Can DC/transfer
[2017-02-18] MEDS: AMPICILLIN NA/SULBACTAM NA 3 GM in SODIUM CHLORIDE 100 ML IVPB SCH ×2 (12:31→17:36)
[2017-02-18] MEDS ORDERED: POTASSIUM CHLORIDE TABS 20 MEQ TABLET.ER (FP) PO ONE ×2 (15:31→17:45)
[2017-02-18] MEDS: SENNOSIDES 8.6MG TABLET (FP) PO SCH (21:57)
[2017-02-19] MEDS: AMPICILLIN NA/SULBACTAM NA 3 GM in SODIUM CHLORIDE 100 ML IVPB SCH ×3 (02:50→17:13)
[2017-02-19] MEDS: PHENobarbital 30 MG TABLET PO SCH ×3 (06:32→21:34)
[2017-02-19] MEDS: PHENYTOIN NA EXTENDED 100 MG CAPSULE (FP) PO SCH ×3 (06:32→21:34)
[2017-02-19] MEDS: HEPARIN NA (PORCINE) 5,000 UNITS/ML 1ML VIAL SQ SCH ×3 (06:32→21:35)
[2017-02-19 07:30] LABS: ALBUMIN 2.5 g/dl (3.4-5.0)
[2017-02-19 07:35] LABS: BILIRUBIN,DIRECT 0.2 mg/dL (0.0-0.2); BILIRUBIN,TOTAL 0.7 mg/dL (0.2-1.0); TOT PROT 5.7 g/dl (6.4-8.2)
--- NOTE | 2017-02-19 07:48 | PN ---
Physical Exam: SUBJECTIVE: Patient seen and examined this AM. No complaints. No CP, no SOB, no fevers, no chills. +passing gas. Minimal tenderness on LUE OBJECTIVE: Vital Signs Period Temp Pulse Resp BP Sys/Ibanez Pulse Ox Last 24 Hr 98.7 F-99.4 F 72-84 18-20 112-121/54-60 99 GENERAL: The patient is awake, alert, and fully oriented, in no acute distress. HEENT: PERRLA, EOMi, normal neck ROM, no LAD LUNGS: Breath sounds equal, clear to auscultation bilaterally, no wheezes, no crackles, no accessory muscle use. HEART: Regular rate and rhythm, S1, S2 without murmur, rub or gallop. ABDOMEN: Soft, nontender, nondistended, normoactive bowel sounds, no guarding, no rebound RIGHT UPPER EXTREMITY: R humerus deformity seen, 2+ pulses, normal sensation, 5/ 5 muscle strength, limited ROM of shoulder, no edema, non TTP LEFT UPPER EXTREMITY: L arm in a sling, 2+ pulses, normal sensation, 5/5 muscle strength, limited ROM of shoulder, shoulder shows nonpitting edema, non TTP, resolved erythema, still warm LOWER EXTREMITIES: 2+ pulses, warm, well-perfused, no edema, normal sensation, 5 /5 muscle strength NEUROLOGICAL: Cranial nerves II through XII grossly intact. No facial droop. Normal sensation and muscle strength in upper and lower extremities and face. No focal neurological deficits. Normal speech, gait not observed. Laboratory Results - last 24 hr 02/18/17 02/18/17 08:30 08:30 WBC 6.8 RBC 3.28 L Hgb 10.7 Hct 31.4 L MCV 95.9 MCH 32.6 MCHC 34.0 RDW 12.9 Plt Count 172 MPV 6.7 L Neutrophils % 58.6 Lymphocytes % 28.3 Monocytes % 12.2 H Eosinophils % 0.4 Basophils % 0.5 Sodium 136 Potassium 3.4 L Chloride 102 Carbon Dioxide 27 Anion Gap 7 L BUN 6 L D Creatinine 0.4 L Creat Clearance w eGFR > 60 Random Glucose 109 H Calcium 8.1 L Total Bilirubin 0.4 AST 20 D ALT 32 D Alkaline Phosphatase 118 H Total Protein 5.6 L Albumin 2.5 L Active Medications Generic Name Dose Route Start Last Admin Trade Name Freq PRN Reason Stop Dose Admin Acetaminophen 325 mg 07/29/17 10:50 02/17/17 17:50 Tylenol - PO 325 mg Q6H PRN Administration FEVER OR PAIN Docusate Sodium 100 mg 02/17/17 11:00 02/18/17 10:09 Colace - PO 100 mg DAILY BRODIE Administration Fluoxetine HCl 60 mg 02/17/17 10:00 02/18/17 10:12 Prozac - PO 60 mg DAILY BRODIE Administration Heparin Sodium (Porcine) 5,000 unit 02/16/17 22:00 02/19/17 06:32 Heparin - SQ 5,000 unit TID BRODIE Administration Ampicillin Sodium/Sulbactam 100 mls @ 200 mls/hr 02/18/17 10:45 02/19/17 02:50 Sodium 3 gm/ Sodium Chloride IVPB 200 mls/hr Q8H-IV BRODIE Administration Maraviroc 300 mg 02/16/17 22:00 02/18/17 21:57 Selzentry - PO 300 mg BID BRODIE Administration Metoprolol Tartrate 50 mg 02/17/17 22:00 02/18/17 21:57 Lopressor - PO 50 mg BID BRODIE Administration Oxycodone HCl 5 mg 02/17/17 10:49 02/17/17 17:51 Roxicodone - PO 5 mg Q6H PRN Administration PAIN Pantoprazole Sodium 20 mg 02/17/17 10:00 02/18/17 10:08 Protonix - PO 20 mg DAILY BRODIE Administration Perphenazine 4 mg 02/17/17 10:00 02/18/17 10:11 Trilafon PO 4 mg DAILY BRODIE Administration Phenobarbital 30 mg 02/16/17 22:00 02/19/17 06:32 Phenobarbital - PO 30 mg TID BRODIE Administration Phenytoin Sodium 100 mg 02/16/17 22:00 02/19/17 06:32 Dilantin - PO 100 mg TID BRODIE Administration Senna 2 tab 02/17/17 22:00 02/18/17 21:57 Senna - PO 2 tab HS BRODIE Administration Tenofovir Disoproxil Fumarate 300 mg 02/17/17 12:00 02/18/17 10:11 Viread - PO 300 mg DAILY BRODIE Administration ASSESSMENT/PLAN: Pt is a 71yo F with HIV on HAART, Seizure Disorder, who presented to the ER s/p mechanical fall without seizure or loss of consciousness. She hit her L arm, and XR shows old oblique L arm humerus fracture and new slightly impacted fracture of humeral neck. # Old L arm humerus fx + New L humeral neck fracture - Surgery L humerus IM rodding on 02/16 (POD 3) - Percocet (oxy + Tylenol) PRN for pain # Cellulitis L arm - IV Unasyn - Will discharge on Clinda + Augmentin - Blood culture prelim shows no growth - R arm U/S couldnt be done due to fracture, low suspicion for DVT # Abnormal LFTs - resolved - HIV meds sfx vs ?hypotension during surgery - Pt has no RUQ pain - RUQ U/S is negative, s/p CCK # Constipation -On Senna + Docusate # Old R humeral fracture - Non unionized, monitor # HTN, controlled - Changed home Metoprolol Tartrate 50mg from TID --> BID # Hx of HIV - Continue HAART (Maraviroc + Dolutegravir + Tenofovir) # Hx of Seizures - No seizure activity during hospitalization - Continue home Phenytoin 100mg PO TID - Continue home Phenobarbital 30mg TID # Hx of Depression/Psychosis Dz - Continue home Prozac 60mg PO QD - Continue home Perphenazine 4mg PO QD #FEN - Fluids: None - Electrolyte: F/u electrolytes - Nutrition: Sodium controlled diet # Prophylaxis - DVT - Heparin SQ - GI - Protonix 20mg PO QD - Deconditioning - PT consulted # Disposition - Pt will be discharged tomorrow morning to assisted living facility Homed meds confirmed with Pharmacy on 02/16 Visit type - Emergency Visit Emergency Visit: No - New Patient This patient is new to me today: No - Critical Care Critical Care patient: No - Discharge Referral Referred to [facility] Med P.C.: No
--- NOTE | 2017-02-19 09:02 | PN ---
Progress Note (short form) - Note Progress Note: Ortho Pt seen and examined Selected Entries 02/19/17 04:39 Temperature 98.8 F Pulse Rate 72 Respiratory 20 Rate Blood Pressure 112/60 Laboratory Tests 02/18/17 08:30 WBC 6.8 Hgb 10.7 Hct 31.4 L Plt Count 172 dressing c/d/i, good rom of elbow, wrist and hand nvi a/p orthopedically stable NTD d/c planning
[2017-02-19] MEDS: DOCUSATE SODIUM 100 MG CAPSULE (FP) PO SCH (09:59)
[2017-02-19] MEDS: METOPROLOL TARTRATE 50 MG TABLET (FP) PO SCH ×2 (09:59→21:34)
[2017-02-19] MEDS: PERPHENAZINE 4 MG TABLET PO SCH (09:59)
[2017-02-19] MEDS: PANTOPRAZOLE 20 MG TABLET (FP) PO SCH (09:59)
[2017-02-19] MEDS: DOLUTEGRAVIR SODIUM 50 MG TABLET PO SCH (10:00)
[2017-02-19] MEDS: MARAVIROC 150 MG TAB PO SCH ×2 (10:00→21:35)
[2017-02-19] MEDS: FLUoxetine HCL 20 MG CAPSULE (FP) PO SCH (10:00)
[2017-02-19] MEDS: TENOFOVIR DISOPROXIL FUMARATE 300 MG TABLET PO SCH (10:01)
--- NOTE | 2017-02-19 14:53 | PN ---
Teaching Attending Note Name of Resident: Tamia Callejas ATTENDING PHYSICIAN STATEMENT I saw and evaluated the patient. I reviewed the resident's note and discussed the case with the resident. I agree with the resident's findings and plan as documented. SUBJECTIVE: comfortable , has no pain OBJECTIVE: NAD, AAOx3 CV: RRR, no MRG Lungs: CTAB ABd :soft, NT, ND , NL BS Ext : no edema over LE. LUE with deformity in upper arm and minimal bruising with TTP . resolved erythema on L upper arm, but still has increased warmth . RUE with deformity in upper arm. limited range of motion in both upper extremities L > R . RP 2+ b/l ASSESSMENT AND PLAN: 71 y/o lady with h/o HTN, HIV on HAART, and seizure disorder who presented after a mechanical fall and was found to have a new L humeral neck fx in addition to the old humeral shaft Fx . 1- L humeral shaft FX (old) , and new L humeral neck Fx. -s/p surgery -cellulitis over L UPper arm has improved , arm still warm, but erythema has resolved - US could not be done due to Fx . w any way suspicion for DVT is low as erythemam resolved with Abx - cont unasyn while here , switch to augmentin and clinda at dc - cont oxycodone - send blood cx 2- Abnormal LFTs :Possible HIV Meds side effect. improved -US with no abnormality 3- Old R humeral shaft Fx. 4- HIV: cont meds 5- HTN:cont BB ( decreased dose to BID due to sx of orthostatic hypotesntion per hx ) 6- h/o Seizure DO : cont meds dispo : ready for dc , [facility] is being contacted as she declined rehab.
[2017-02-19] MEDS: ACETAMINOPHEN 325 MG TABLET (FP) PO PRN (18:16)
[2017-02-19] MEDS: oxyCODONE HCL 5 MG TABLET PO PRN (18:16)
[2017-02-19] MEDS: SENNOSIDES 8.6MG TABLET (FP) PO SCH (21:34)
[2017-02-20] MEDS ORDERED: PT OWN MED DRAWER 7, Y5N ONE ×2 (01:01→09:25)
[2017-02-20] MEDS: AMPICILLIN NA/SULBACTAM NA 3 GM in SODIUM CHLORIDE 100 ML IVPB SCH ×2 (02:30→11:19)
[2017-02-20] MEDS: HEPARIN NA (PORCINE) 5,000 UNITS/ML 1ML VIAL SQ SCH (06:44)
[2017-02-20] MEDS: PHENYTOIN NA EXTENDED 100 MG CAPSULE (FP) PO SCH (06:44)
[2017-02-20] MEDS: PHENobarbital 30 MG TABLET PO SCH (06:44)
[2017-02-20 10:40] LABS: CALCIUM 8.1 mg/dL (8.5-10.1)
[2017-02-20 10:44] LABS: ANION GAP 13 (8-16); CO2 19 mmol/L (21-32); CREATININE 0.4 mg/dL (0.55-1.02); GLUCOSE,RANDOM 103 mg/dL (74-106)
[2017-02-20] MEDS: PANTOPRAZOLE 20 MG TABLET (FP) PO SCH (11:15)
[2017-02-20] MEDS: DOCUSATE SODIUM 100 MG CAPSULE (FP) PO SCH (11:16)
[2017-02-20] MEDS: FLUoxetine HCL 20 MG CAPSULE (FP) PO SCH (11:16)
[2017-02-20] MEDS: METOPROLOL TARTRATE 50 MG TABLET (FP) PO SCH (11:16)
[2017-02-20] MEDS: DOLUTEGRAVIR SODIUM 50 MG TABLET PO SCH (11:18)
[2017-02-20] MEDS: MARAVIROC 150 MG TAB PO SCH (11:18)
[2017-02-20] MEDS: TENOFOVIR DISOPROXIL FUMARATE 300 MG TABLET PO SCH (11:19)
[2017-02-20] MEDS: PERPHENAZINE 4 MG TABLET PO SCH (11:19)
[2017-02-20 12:53] VITALS: BP 150/89; PULSE 74; TEMP 98.9
--- NOTE | 2017-02-20 15:17 | PN ---
Teaching Attending Note Name of Resident: Tamia Callejas ATTENDING PHYSICIAN STATEMENT I saw and evaluated the patient. I reviewed the resident's note and discussed the case with the resident. I agree with the resident's findings and plan as documented. SUBJECTIVE: pain in upper extremities has improved had BM this am OBJECTIVE: NAD, AAOx3 CV: RRR, no MRG Lungs: CTAB Ext : no edema over LE. LUE with deformity in upper arm and minimal bruising with TTP . resolved erythema on L upper arm, but still has increased warmth but improved compared to yesterday . RUE with deformity in upper arm. limited range of motion in both upper extremities L > R . RP 2+ b/l ASSESSMENT AND PLAN: 71 y/o lady with h/o HTN, HIV on HAART, and seizure disorder who presented after a mechanical fall and was found to have a new L humeral neck fx in addition to the old humeral shaft Fx . 1- L humeral shaft FX (old) , and new L humeral neck Fx. -s/p surgery -cellulitis over L UPper arm has much improved -switch to Augmentin and clinda x 1 week - cont oxycodone - blood cx no growth x 48 hr 2- Abnormal LFTs :Possible HIV Meds side effect. improved -US with no abnormality 3- Old R humeral shaft Fx. 4- HIV: cont meds 5- HTN:cont BB ( decreased dose to BID due to sx of orthostatic hypotesntion per hx ) 6- h/o Seizure DO : cont meds DC to [facility] . pt declined rehab understanding the risk of fall
--- NOTE | 2017-02-20 19:56 | DS ---
Physical Exam: SUBJECTIVE: Patient seen and examined this AM. No CP, no SOB, no fevers, no chills. Passing gas. OBJECTIVE: Vital Signs Period Temp Pulse Resp BP Sys/Ibanez Pulse Ox Last 24 Hr 98.6 F-98.9 F 70-74 18-20 127-150/65-89 98-98 PHYSICAL EXAM GENERAL: The patient is awake, alert, and fully oriented, in no acute distress. HEENT: PERRLA, EOMi, normal neck ROM, no LAD LUNGS: Breath sounds equal, clear to auscultation bilaterally, no wheezes, no crackles, no accessory muscle use. HEART: Regular rate and rhythm, S1, S2 without murmur, rub or gallop. ABDOMEN: Soft, nontender, nondistended, normoactive bowel sounds, no guarding, no rebound RIGHT UPPER EXTREMITY: R humerus deformity seen, 2+ pulses, normal sensation, 5/ 5 muscle strength, limited ROM of shoulder, no edema, non TTP LEFT UPPER EXTREMITY: L arm in a sling, 2+ pulses, normal sensation, 5/5 muscle strength, limited ROM of shoulder, shoulder shows nonpitting edema, non TTP, resolved erythema, still warm LOWER EXTREMITIES: 2+ pulses, warm, well-perfused, no edema, normal sensation, 5 /5 muscle strength NEUROLOGICAL: Cranial nerves II through XII grossly intact. No facial droop. Normal sensation and muscle strength in upper and lower extremities and face. No focal neurological deficits. Normal speech, gait not observed. LABS Laboratory Results - last 24 hr 02/20/17 06:10 Sodium 139 Potassium 4.1 Chloride 107 Carbon Dioxide 19 L D Anion Gap 13 BUN 5 L Creatinine 0.4 L Random Glucose 103 Calcium 8.1 L HOSPITAL COURSE: Date of Admission:02/16/17 Date of Discharge: 02/20/17 Pt is a 71yo F with HIV on HAART, Seizure Disorder, who presented to the ER s/p mechanical fall without seizure or loss of consciousness. She hit her L arm, and XR shows old oblique L arm humerus fracture and new slightly impacted fracture of humeral neck. # L arm humerus fx (old) + New L humeral neck fracture - The patient has a history of an old nonunionized L and R arm fracture. Old X- rays of the L arm could not be obtained. The XR did show a new L humeral neck fracture. We consulted general surgery, who understood her L arm humerus fracture was old. They took the patient into the OR and the patient underwent a L humerus IM rodding on 02/16. The patient tolerated the procedure well. Post-op she developed a fever with cellulitis on her L arm. We started IV Unasyn 3g Q8 for 3 days. She remained afebrile and her cellulitis improved. Blood cultures were ordered and showed no growth. We ordered a R arm duplex ultrasound but it could not be done due to the fracture. There is low suspicion for a DVT. The patient will be continued on Clindamycin and Augmentin as an outpatient. The patient was discharged back to [facility] to undergo further physical therapy # Abnormal LFTs - resolved - Postop her AST was mildly elevated at 40, and ALP at 135. This could have been due to mild hypoperfusion during the surgery, since it recovered by the time of discharge. She has had a cholecystectomy. She had no RUQ pain and a RUQ ultrasound was negative for obstruction. # Other - Hx of HTN - We decreased the dose of her home Metoprolol Tartrate 50mg from TID --> BID, well tolerated - Hx of HIV - We continued her HAART regimen (Maraviroc + Dolutegravir + Tenofovir) - Hx of Seizures - We continued her home Phenytoin 100mg PO TID and Phenobarbital 30mg TID, no seizures in the hospital - Hx of MDD/Psychosis Disorders - We continued her home Prozac 60mg QD + Perphenazine 4mg PO QD The hospital course was discussed with the patient who agrees with the plan Minutes to complete discharge: 55 Discharge Summary Reason For Visit: HUMERAL SHAFT FRACTURE Condition: Improved - Instructions Diet, Activity, Other Instructions: - Please take your new antibiotics: Augmentin 500mg/125mg PO two times a day for 7 days Clindamycin 300 q8 hr for 7 days - Please take these medications with foods - If you experience stomach-aches or diarrhea, please inform your doctor - Please get a followup CBC and BMP in 1 week by your Primary Care Doctor (Dr. Coffey) - Please continue to take your blood pressure medications - If you experience severe arm pain, please inform your doctor - Please try not to lift heavy objects during your recovery - Please followup with your Surgeon Dr. Hardin in 2 weeks Referrals: Yasmine Coffey MD [Primary Care Provider] - 2 Weeks Attila Hardin MD [Staff Physician] - 2 Weeks Disposition: ASSISTED LIVING FACILITY - Home Medications Comprehensive Discharge Medication List: Ambulatory Orders Acetaminophen [Tylenol .Regular Strength -] 325 mg PO Q6H PRN #30 tablet Cyanocobalamin (Vitamin B-12) [B-12] 1,000 mcg PO DAILY #30 tab 02/19/17 Dolutegravir Sodium [Tivicay] 50 mg PO DAILY #30 tab 02/19/17 Emtricitabine/Tenofov Alafenam [Descovy 200-25 mg Tablet] 1 each PO DAILY #30 tab 02/19/17 Fluoxetine HCl [Sarafem] 60 mg PO DAILY #30 tab 02/19/17 Maraviroc [Selzentry] 300 mg PO BID #30 tab 02/19/17 Metoprolol Tartrate 50 mg PO BID #1 tablet 02/19/17 Omeprazole Magnesium [Prilosec] 20 mg PO DAILY #30 tab 02/19/17 Perphenazine [Trilafon -] 4 mg PO DAILY #30 tab 02/19/17 Phenobarbital 32.4 mg PO TID #30 tab 02/19/17 Phenytoin Sodium 100 cap MC TID #30 tab 02/19/17 Amoxicillin/Potassium Clav [Augmentin 500-125 Tablet] 1 each PO BID #14 tablet 02/20/17 Clindamycin [Cleocin -] 300 mg PO TID #21 capsule 02/20/17 This patient is new to me today: No Emergency Visit: No Critical Care patient: No - Discharge Referral Referred to [facility] Med P.C.: No
== END 2017-02-20 12:04 | disposition home or self-care (01) | DRG 563 ==
LOC: JER 01:46 → JERBED 02:53 → J6S 05:04
PROVIDERS: ADMIT Internal Medicine; ATTEND Internal Medicine
PROC: 0XJ90ZZ Inspection of Left Upper Arm, Open Approach (ICD-10-PCS; principal; 2017-02-16 13:15)
DX: S42.362A Displaced segmental fracture of shaft of humerus, left arm, initial encounter for closed fracture (principal); L03.114 Cellulitis of left upper limb; W19.XXXA Unspecified fall, initial encounter; Y93.9 Activity, unspecified; Y92.091 Bathroom in other non-institutional residence as the place of occurrence of the external cause; Y99.9 Unspecified external cause status; Z21 Asymptomatic human immunodeficiency virus [HIV] infection status; I10 Essential (primary) hypertension; G40.909 Epilepsy, unspecified, not intractable, without status epilepticus; F32.9 Major depressive disorder, single episode, unspecified; K59.00 Constipation, unspecified
CPT/HCPCS: 36415; 71010-TC; 73030-TC-LT; 73060-TC-LT; 73200-TC-RT; 73502-TC-RT; 73523-TC; 76000-TC; 76705-TC; 80048; 80053; 80076; 81003; 82550; 84132; 84484; 85025; 85027; 85610; 86850; 86900; 86901; 87040; 93005; 93010; 94760; 97116-GP; 97162-GP; 99282-25; J1644

== ENCOUNTER 2017-05-07 15:11 | Emergency (ER) | payer OTHER ==
--- NOTE | 2017-05-07 15:24 | PDOC ---
History of Present Illness - General Chief Complaint: Weakness Stated Complaint: WEAKNESS Time Seen by Provider: 05/07/17 15:21 - History of Present Illness Initial Comments: 05/07/17 15:21 Ms. James is a 72 yo female with a significant past medical history of HTN, Hypercholesterolemia, CVA, HIV, epilepsy, tremors, depression, and bilateral humerus fractures who presents to the emergency department complaining of a 1 day history of generalized weakness. She says that it began yesterday when she was attempting to get up but that she otherwise has no issues. The patient denies chest pain, shortness of breath, headache and dizziness. Denies fever, chills, nausea, vomit, diarrhea and constipation. Denies dysuria, frequency, urgency and hematuria. Allergies: NKDA Past History - Past Medical History Allergies/Adverse Reactions: Allergies Allergy/AdvReac Type Severity Reaction Status Date / Time No Known Allergies Allergy Verified 05/16/16 08:39 Home Medications: Ambulatory Orders Acetaminophen [Tylenol .Regular Strength -] 325 mg PO Q6H PRN #30 tablet Fluoxetine HCl [Sarafem] 60 mg PO DAILY #30 tab 02/19/17 Perphenazine [Trilafon -] 4 mg PO DAILY #30 tab 02/19/17 Phenobarbital 32.4 mg PO TID #30 tab 02/19/17 Clotrimazole 1 applic TP ASDIR 05/07/17 Cyanocobalamin (Vitamin B-12) [B-12] 500 mcg PO DAILY 05/07/17 Diclofenac Sodium [Voltaren] 2 gm TP ASDIR 05/07/17 Dolutegravir Sodium [Tivicay] 50 mg PO BID 05/07/17 Emtricitabine/Tenofov Alafenam [Descovy 200-25 mg Tablet] 1 each PO DAILY Hydrocortisone 1% Cream [Hytone 1% Cream -] 1 applic TP DAILY 05/07/17 Levofloxacin [Levaquin] 750 mg PO DAILY #10 tab 05/07/17 Maraviroc [Selzentry] 600 mg PO BID 05/07/17 Metoprolol Tartrate 50 mg PO TID 05/07/17 Phenytoin Sodium 100 cap PO TID 05/07/17 CVA: Yes HTN: Yes Hypercholesterolemia: Yes Psychiatric Problems: Yes (depression) Seizures: Yes (epilsepy) - Suicide/Smoking/Psychosocial Hx Smoking History: Unknown if ever smoked Have you smoked in the past 12 months: No Hx Alcohol Use: No Drug/Substance Use Hx: No Substance Use Type: None Hx Substance Use Treatment: No Review of Systems - Review of Systems Comments:: 05/07/17 15:24 GENERAL/CONSTITUTIONAL: +Subjective fever at care facility. Generalized weakness No chills. HEAD, EYES, EARS, NOSE AND THROAT: No change in vision. No ear pain or discharge. No sore throat. CARDIOVASCULAR: No chest pain or shortness of breath RESPIRATORY: No cough, wheezing, or hemoptysis. GASTROINTESTINAL: No nausea, vomiting, diarrhea or constipation. GENITOURINARY: No dysuria, frequency, or change in urination. MUSCULOSKELETAL: No joint or muscle swelling or pain. No neck or back pain. SKIN: No rash NEUROLOGIC: No headache, vertigo, loss of consciousness, or change in strength/ sensation. ENDOCRINE: No increased thirst. No abnormal weight change HEMATOLOGIC/LYMPHATIC: No anemia, easy bleeding, or history of blood clots. ALLERGIC/IMMUNOLOGIC: No hives or skin allergy. *Physical Exam - Physical Exam Comments: 05/07/17 15:24 GENERAL: Awake, alert, and fully oriented, in no acute distress HEAD: No signs of trauma, normocephalic, atraumatic EYES: PERRLA, EOMI, sclera anicteric, conjunctiva clear ENT: Auricles normal inspection, hearing grossly normal, nares patent, oropharynx clear without exudates. Moist mucosa NECK: Normal ROM, supple, no lymphadenopathy, JVD, or masses LUNGS: No distress, speaks full sentences, clear to auscultation bilaterally HEART: Regular rate and rhythm, normal S1 and S2, no murmurs, rubs or gallops, peripheral pulses normal and equal bilaterally. ABDOMEN: Soft, nontender, normoactive bowel sounds. No guarding, no rebound. No masses EXTREMITIES: +Minimal ability to move upper arms at baseline. Normal inspection , Normal range of motion, no edema. No clubbing or cyanosis. NEUROLOGICAL: Cranial nerves II through XII grossly intact. Normal speech, no focal sensorimotor deficits SKIN: Warm, Dry, normal turgor, no rashes or lesions noted. ED Treatment Course - LABORATORY CBC & Chemistry Diagram: 05/07/17 16:49 05/07/17 17:40 Medical Decision Making - Medical Decision Making 05/07/17 18:57 Ms. James presents with generalized weakness and fever to 100.2, increased to 101.8 in the ED. 650mg tylenol given for fever control. UA/adult labs ordered to investigate fever/weakness etiology. Patient signed out to Dr. Lopez for further care. *DC/Admit/Observation/Transfer Diagnosis at time of Disposition: Pneumonia Qualifiers: Pneumonia type: due to unspecified organism Laterality: unspecified laterality Lung location: unspecified part of lung Qualified Code(s): J18.9 - Pneumonia, unspecified organism; J18.9 - Pneumonia, unspecified organism - Discharge Dispostion Disposition: HOME Condition at time of disposition: Improved - Prescriptions Prescriptions: Levofloxacin [Levaquin] 750 mg PO DAILY #10 tab - Referrals Referrals: Yasmine Coffey MD [Primary Care Provider] - - Patient Instructions Printed Discharge Instructions: DI for Pneumonia -- Adult Additional Instructions: Follow up with primary doctor in 2 days. Come back to the ED if feeling any shortness of breath, running fevers, dizziness or if no improvement within the next two days.
[2017-05-07 15:30] VITALS: BMI 31.1
--- NOTE | 2017-05-07 16:21 | PDOC ---
Attending Attestation - Resident Resident Name: Alfredo Cuevas - ED Attending Attestation I have performed the following: I have examined & evaluated the patient, The case was reviewed & discussed with the resident, I agree w/resident's findings & plan, Exceptions are as noted - HPI HPI: 05/07/17 16:21 72y F hx of htn, hl, cva hiv, epilepsy, tremors, depression b/l humeral fx, presents with feeling generally weak. Pt staets for the past few days, she has felt weak and had trouble getting out of bed. Pt denies any focal weakness, headache, vision changes, cp, sob, cough, dysuria, diarrhea. - Physicial Exam PE: GENERAL: The patient is awake, alert, and fully oriented, Nontoxic - in no acute distress. HEAD: Normocephalic, atraumatic. EYES: extraocular movements intact, sclera anicteric, conjunctiva clear. ENT: Normal voice, dry mucous membranes. NECK: Normal range of motion, supple LUNGS: Breath sounds equal, clear to auscultation bilaterally. HEART: Regular rate and rhythm, normal S1 and S2 without murmur, rub or gallop. ABDOMEN: Soft, nontender, normoactive bowel sounds. No guarding, no rebound. . No CVA tenderness EXTREMITIES: b/l humeral fx without ecchymosis, no n/v deficits, movement symmetric in upper/lower extreiites NEUROLOGICAL: No facial assymetry, Normal speech, PSYCH: Normal mood, normal affect. SKIN: slightly hot to touch, Dry, normal turgor, - Medical Decision Making diferential for the pts symptoms includes occult infection, metabolic dernagment , anemia will ck cbc, cmp, ua, trop, ekg, cxr 05/07/17 18:55 pts labs reviewed wbc elevated to 12 pt also noted to be febrile and was given tylenol labs otherwise unremakrabkle pending UA - if UTI will treat for UTI and will likely be able to be dc back to [facility] Heart Score/ECG Review - ECG Impressions Comment:: 05/07/17 17:09 Twelve-lead EKG was performed and reviewed by me. There is normal sinus rhythm with a normal rate. Right axis deviation Incomplete RBBB T wave inversions in the anterior and lateral leads ekg had similar changes on prior ekg dated 02/16
[2017-05-07 16:56] LABS: BASOPHIL 0.2 % (0-2.0); MCH 32.1 pg (25.7-33.7); MCHC 33.7 g/dl (32.0-36.0); MEAN CELL VOLUME 95.1 fl (80-96); MEAN PLT VOLUME 7.6 fl (7.5-11.1); NEUTROPHILS 68.2 % (42.8-82.8); PLATELET COUNT 229 K/MM3 (134-434); RDW 13.2 % (11.6-15.6); WHITE BLOOD COUNT 12.2 K/mm3 (4.0-10.0)
[2017-05-07 18:08] LABS: ALBUMIN 3.1 g/dl (3.4-5.0); ANION GAP 12 (8-16); BILIRUBIN,TOTAL 0.9 mg/dL (0.2-1.0); CALCIUM 8.7 mg/dL (8.5-10.1); CO2 24 mmol/L (21-32); CREATININE 0.6 mg/dL (0.55-1.02); GLUCOSE,RANDOM 107 mg/dL (74-106); SGOT/AST 15 U/L (15-37); SGPT/ALT 24 U/L (12-78); TOT PROT 7.2 g/dl (6.4-8.2)
[2017-05-07 18:10] LABS: ALK PHOS 131 U/L (45-117); CPK 44 IU/L (26-192); TROPONIN I < 0.02 ng/ml (0.00-0.05)
[2017-05-07 18:29] VITALS: BP 156/88; PULSE 90; TEMP 101.8
[2017-05-07] MEDS ORDERED: SODIUM CHLORIDE 1,000 ML IV STA (18:29)
[2017-05-07] MEDS ORDERED: ACETAMINOPHEN 325 MG TABLET (FP) ONE (18:34)
[2017-05-07] MEDS ORDERED: ACETAMINOPHEN 325 MG TABLET (FP) PO ONE (18:34)
[2017-05-07 18:51] LABS: URINE APPEARANCE CLOUDY; URINE BILIRUBIN NEGATIVE (NEGATIVE); URINE BLOOD NEGATIVE (NEGATIVE); URINE COLOR AMBER; URINE GLUCOSE (UA) NEGATIVE (NEGATIVE); URINE KETONE TRACE (NEGATIVE); URINE NITRITE NEGATIVE (NEGATIVE); URINE UROBILINOGEN NEGATIVE mg/dL (0.2-1.0)
[2017-05-07 19:12] LABS: URINE PROTEIN 2+ (NEGATIVE)
--- NOTE | 2017-05-07 19:14 | PDOC ---
*Physical Exam - Vital Signs Last Vital Signs Temp Pulse Resp BP Pulse Ox 101.8 F H 90 18 156/88 95 05/07/17 18:28 05/07/17 18:28 05/07/17 18:28 05/07/17 18:28 05/07/17 18:29 ED Treatment Course - LABORATORY CBC & Chemistry Diagram: 05/07/17 16:49 05/07/17 17:40 - ADDITIONAL ORDERS Additional order review: Laboratory Results 05/07/17 05/07/17 05/07/17 17:40 16:49 16:49 Sodium 131 L Cancelled Potassium 3.7 Cancelled Chloride 95 L D Cancelled Carbon Dioxide 24 D Cancelled Anion Gap 12 Cancelled BUN 9 D Cancelled Creatinine 0.6 D Cancelled Creat Clearance w eGFR > 60 Cancelled Random Glucose 107 H Cancelled Calcium 8.7 Cancelled Total Bilirubin 0.9 D Cancelled AST 15 Cancelled ALT 24 Cancelled Alkaline Phosphatase 131 H Cancelled Creatine Kinase 44 Cancelled Troponin I < 0.02 Cancelled Total Protein 7.2 D Cancelled Albumin 3.1 L D Cancelled Urine Color Urine Appearance Urine pH Urine Protein Urine Glucose (UA) Urine Ketones Urine Blood Urine Nitrite Urine Bilirubin Urine Urobilinogen 05/07/17 16:49 Sodium Potassium Chloride Carbon Dioxide Anion Gap BUN Creatinine Creat Clearance w eGFR Random Glucose Calcium Total Bilirubin AST ALT Alkaline Phosphatase Creatine Kinase Troponin I Total Protein Albumin Urine Color Opal Urine Appearance Cloudy Urine pH 6.0 Urine Protein 2+ H Urine Glucose (UA) Negative Urine Ketones Trace H Urine Blood Negative Urine Nitrite Negative Urine Bilirubin Negative Urine Urobilinogen Negative 05/07/17 16:49 RBC 3.89 MCV 95.1 MCHC 33.7 RDW 13.2 MPV 7.6 D Neutrophils % 68.2 Lymphocytes % 20.1 D Monocytes % 11.5 H Eosinophils % 0.0 D Basophils % 0.2 - Medications Given in the ED: ED Medications Discontinued Medications Generic Name Dose Route Start Last Admin Trade Name Freq PRN Reason Stop Dose Admin Acetaminophen 650 mg 05/07/17 18:34 05/07/17 18:35 Tylenol - PO 05/07/17 18:35 650 mg ONCE ONE Administration Medical Decision Making - Medical Decision Making 05/07/17 19:13 Patient signed out from Dr. Cuevas 05/07/17 20:35 UA negative. Patient's CXR found to have some infiltrations/opacities on right lower base. Patient started on Levaquin with outpatient course for 10 days. Follow up with PCP. *DC/Admit/Observation/Transfer Diagnosis at time of Disposition: Pneumonia - Discharge Dispostion Disposition: HOME Condition at time of disposition: Improved Admit: No - Prescriptions Prescriptions: Levofloxacin [Levaquin] 750 mg PO DAILY #10 tab - Patient Instructions Printed Discharge Instructions: DI for Pneumonia -- Adult Additional Instructions: Follow up with primary doctor in 2 days. Come back to the ED if feeling any shortness of breath, running fevers, dizziness or if no improvement within the next two days.
--- NOTE | 2017-05-07 19:14 | PDOC ---
*Physical Exam - Vital Signs Last Vital Signs Temp Pulse Resp BP Pulse Ox 101.8 F H 90 18 156/88 95 05/07/17 18:28 05/07/17 18:28 05/07/17 18:28 05/07/17 18:28 05/07/17 18:29 - Physical Exam Comments: 05/07/17 19:49 Gen: aaox3, nad heart: +s1s2 reg Lungs: cta b/l abd: soft, nt/nd +bs Ext: no c/c/e Skin: warm to touch. ED Treatment Course - LABORATORY CBC & Chemistry Diagram: 05/07/17 16:49 05/07/17 17:40 - ADDITIONAL ORDERS Additional order review: Laboratory Results 05/07/17 05/07/17 05/07/17 17:40 16:49 16:49 Sodium 131 L Cancelled Potassium 3.7 Cancelled Chloride 95 L D Cancelled Carbon Dioxide 24 D Cancelled Anion Gap 12 Cancelled BUN 9 D Cancelled Creatinine 0.6 D Cancelled Creat Clearance w eGFR > 60 Cancelled Random Glucose 107 H Cancelled Calcium 8.7 Cancelled Total Bilirubin 0.9 D Cancelled AST 15 Cancelled ALT 24 Cancelled Alkaline Phosphatase 131 H Cancelled Creatine Kinase 44 Cancelled Troponin I < 0.02 Cancelled Total Protein 7.2 D Cancelled Albumin 3.1 L D Cancelled Urine Color Urine Appearance Urine pH Urine Protein Urine Glucose (UA) Urine Ketones Urine Blood Urine Nitrite Urine Bilirubin Urine Urobilinogen 05/07/17 16:49 Sodium Potassium Chloride Carbon Dioxide Anion Gap BUN Creatinine Creat Clearance w eGFR Random Glucose Calcium Total Bilirubin AST ALT Alkaline Phosphatase Creatine Kinase Troponin I Total Protein Albumin Urine Color Opal Urine Appearance Cloudy Urine pH 6.0 Urine Protein 2+ H Urine Glucose (UA) Negative Urine Ketones Trace H Urine Blood Negative Urine Nitrite Negative Urine Bilirubin Negative Urine Urobilinogen Negative 05/07/17 16:49 RBC 3.89 MCV 95.1 MCHC 33.7 RDW 13.2 MPV 7.6 D Neutrophils % 68.2 Lymphocytes % 20.1 D Monocytes % 11.5 H Eosinophils % 0.0 D Basophils % 0.2 - Medications Given in the ED: ED Medications Discontinued Medications Generic Name Dose Route Start Last Admin Trade Name Freq PRN Reason Stop Dose Admin Acetaminophen 650 mg 05/07/17 18:34 05/07/17 18:35 Tylenol - PO 05/07/17 18:35 650 mg ONCE ONE Administration Medical Decision Making - Medical Decision Making 05/07/17 19:49 pt signed out pending cxr/ua and re-eval 05/07/17 19:50 cxr reviewed, RLL infiltrate ua reviewed, no UTI 05/07/17 19:55 labs and imaging discussed with the patient. will start abx in the ED. Pt lives at assisted living. Most likely early PNA. Stable for d/c to home. Will d/c home with levaquin. Pt and family at the bedside agree with the plan. Pt stable for d/c to home. 05/07/17 20:42 pt feeling much better. Tolerated PO intake. would rather go home than stay in the hospital. Discussed all reasons to return to the ED and need for follow up with her PMD. Pt stable for d/c to home. *DC/Admit/Observation/Transfer Diagnosis at time of Disposition: Pneumonia - Discharge Dispostion Disposition: HOME - Prescriptions Prescriptions: Levofloxacin [Levaquin] 750 mg PO DAILY #10 tab - Referrals Referrals: Yasmine Coffey MD [Primary Care Provider] - - Patient Instructions Printed Discharge Instructions: DI for Pneumonia -- Adult Additional Instructions: Follow up with primary doctor in 2 days. Come back to the ED if feeling any shortness of breath, running fevers, dizziness or if no improvement within the next two days.
[2017-05-07] MEDS ORDERED: LEVOFLOXACIN 750 MG IVPB 150 ML IVPB ONE ×2 (19:31→20:02)
[2017-05-07 19:36] LABS: URINE BACTERIA RARE /hpf (NONE SEEN); URINE MUCUS RARE; URINE RBC 14 /hpf (0-3); URINE WBC 8 /hpf (3-5)
[2017-05-07 22:25] LABS: URINE LEUK ESTERASE Negative (NEGATIVE)
--- NOTE | 2017-05-08 22:38 | EKG ---
Test Reason : Blood Pressure : / mmHG Vent. Rate : 083 BPM Atrial Rate : 083 BPM P-R Int : 146 ms QRS Dur : 092 ms QT Int : 378 ms P-R-T Axes : 000 148 140 degrees QTc Int : 444 ms NORMAL SINUS RHYTHM RIGHT AXIS DEVIATION INCOMPLETE RIGHT BUNDLE BRANCH BLOCK ABNORMAL ECG WHEN COMPARED WITH ECG OF 16-FEB-2017 03:51, QRS AXIS SHIFTED RIGHT ST-T ABNORMALITIES ARE MORE PRONOUNCED IN PRECORDIAL LEADS CLINICAL CORRELATION IS RECOMMENDED FOLLOW UP EKG Confirmed by LING DALAL MD ([id number] on 05/08/2017 10:37:49 PM Referred By: Confirmed By:LING DALAL MD
== END 2017-05-08 | disposition home or self-care (01) ==
LOC: JER 15:11
PROC: 3E0337Z Introduction of Electrolytic and Water Balance Substance into Peripheral Vein, Percutaneous Approach (ICD-10-PCS; principal; 2017-05-07)
PROC: 3E03329 Introduction of Other Anti-infective into Peripheral Vein, Percutaneous Approach (ICD-10-PCS; 2017-05-07)
DX: J18.9 Pneumonia, unspecified organism (principal); I10 Essential (primary) hypertension; E78.00 Pure hypercholesterolemia, unspecified; Z21 Asymptomatic human immunodeficiency virus [HIV] infection status; F41.9 Anxiety disorder, unspecified; Z86.69 Personal history of other diseases of the nervous system and sense organs; Z86.73 Personal history of transient ischemic attack (TIA), and cerebral infarction without residual deficits
CPT/HCPCS: 36415; 71010-TC; 80053; 81003; 81015; 82550; 84484; 85025; 93005; 93010; 96361; 96365; 99285-25